=== PATIENT | male | born 1995 | race Caucasian/White ===

== ENCOUNTER 2016-07-08 16:54 | Inpatient (IN) | payer MEDICAID, OTHER ==
[~2016-07-08] VITALS: Ht 177.8 cm; Wt 145.0 kg
[2016-07-08] MEDS ORDERED: Magnesium Hydroxide 10 mL Oral Concentration PO PRN (21:40)
[2016-07-08] MEDS ORDERED: Benzocaine-Menthol Lozenge 2/Pkg PO PRN (21:40)
[2016-07-08] MEDS ORDERED: Alum-Mag Hydrox-Simeth 30 mL Suspension PO PRN (21:40)
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
--- NOTE | 2016-07-09 05:11 | NUR ---
nursing, nights, 11-7 s/o- has appeared to sleep after 2315 during q 15 minute assessments. a- no apparent distress. p- monitor behavior/emotional state, quality, times and amount of sleep, use and effect of medication. jasson
--- NOTE | 2016-07-09 05:52 | NUR ---
Pt arrived to unit 2114. Signed all paperwork and settled in. Pleasant, asked questions about unit, tour given. Asleep at 2315. Pt observed every 15 minutes as ordered.
[2016-07-09 09:00] VITALS: BP 131/82; PULSE 64; RESP 15
--- NOTE | 2016-07-09 12:55 | NUR ---
Nursing Note [id number] Behavior S/O: Pt wanted to sleep in this morning. He missed breakfast, but ate 100% of lunch. VS stable. Pt took a shower this morning. Pt in room most of the day. Pleasant & cooperative. Little interaction with peers & staff. Superficial interactions only. Pt showered this morning. Pt rates his depression at a "5 or 6" on a scale of 1-10/10 the worst. He denies suicidal ideation. A: Pt isolative & avoiding staff & peers. P: Provide supportive environment. Monitor medications & effects.
--- NOTE | 2016-07-09 18:18 | NUR ---
Observations [id number] Pt was asleep in room upon start of shift. Pt appears to not be very social, staying in his room much of shift. He did not attend breakfast and did not set a daily goal. Pt took a shower and did laundry later in the day, but did not attend groups. His family came to visit him in the afternoon, which he seemed to enjoy. Parents shared that he is not very social, and encouragement to groups would be good. Pt did eat 100% of lunch and dinner. He was observed every 15 minutes of shift as directed.
[2016-07-09] MEDS: LORazepam 1 mg Tablet PO PRN (19:44)
--- NOTE | 2016-07-09 19:45 | NUR ---
Nurses Note PRN Patient received Ativan 1mg at 1944 for increasing anxiety,tearfulness and frustration with his hospitalization. Patient responded to support and reality testing regarding his alcohol abuse and coping skills. Will assess medication response. Addendum: 07/09/16 at 2134 by DAMON MEDEL RN Nurses PRN Patient requested and received Ambien 5mg at 2034 for sleep,will assess response.
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
--- NOTE | 2016-07-10 05:32 | NUR ---
nursing, nights, 11-7 s/o- has appeared to sleep after 2200 during q 15 minute assessments. a- no apparent distress. p- monitor behavior/emotional state, quality, times and amount of sleep, use and effect of medication.
[2016-07-10 09:00] VITALS: BP 140/88; PULSE 65; RESP 16
--- NOTE | 2016-07-10 12:24 | NUR ---
Nursing Note [id number] Behavior S/O: Pt in room most of the day. He came out for brief periods of time to eat, attend community meeting, shower, & play the piano. Pt refused breakfast, but ate 100% of lunch. VS stable. Pt pleasant & cooperative. Conversation tracking clear & organized, but very brief & has only superficial conversation with brief sentences. Pt's goal today was to "be positive." A: Pt isolative & has difficulty opening up about personal matters. P: Provide supportive environment. Monitor medications & effects.
[2016-07-10] MEDS: LORazepam 1 mg Tablet PO PRN (16:54)
--- NOTE | 2016-07-10 17:09 | NUR ---
Observations 0900 to 1730 Pt affect and mood was flat, withdrawn and anxious. Pt speech and eye contact was ok. Pt attended group and unit activities. Pt attended community meeting and set a daily goal. Pt was social with staff and select peers when approached. Pt attended meals in D.R. and ate 0% of breakfast and 100% of lunch. Pt maintained behavior throughout the shift. Pt was in his room reading for a majority of the shift. Pt was polite, pleasant and cooperative. Pt had a visit from his GF and it appeared to go well. Pt was observed every 15 minutes throughout the shift as ordered. Addendum: 07/10/16 at 1732 by SABAS FONTENOT [facility] Pt took a shower and attended to ADL's.
--- NOTE | 2016-07-10 17:45 | NUR ---
Bleach Boiler Puller/Counselor: S: "I really needed to get help." O: Patient slept 8+ hours last night as per staff. He reports daily thoughts of suicide, but contracts for safety in the hospital. He denies H/I. He denies auditory and visual hallucinations. A: Patient is cooperative, guarded, depressed, anxious, sad, fair insight, fair judgment. P: Follow care plan, coordinate out-patient providers.
--- NOTE | 2016-07-10 20:20 | PROG NOTE ---
[address] [address] PROGRESS NOTE PATIENT: FRANK INFANTE : 1995 MR#: [id number] ADMIT: 07/08/2016 JOB ID: [id number] DATE: 07/10/2016 CHIEF COMPLAINT: "My mom said that she has been taking Prozac and was recently started on gabapentin." This is per patient report. HISTORY OF PRESENT ILLNESS: As stated above, the patient did identify that he was able to find out that his mother is on prescriptions including Prozac. He indicated that she evidently was recently started on gabapentin in addition, and stated that this was for factors of anxiety. He currently identified a willingness to initiate doses of Prozac, and I have encouraged him to follow up with Psychiatric Care for possible additional treatment. In review of his current status, he states that he had a very positive visit last evening with his parents, his brother he states that he has had telephone conversations with his girlfriend and that things are progressing very well. He continues to be open to follow-up care including individual therapy, medication management, after he leaves the hospital. I have discussed a tentative plan of discharge on Sunday. He is open for such. MENTAL STATUS EXAM: He was bright, cooperative. He continues to be quite anxious, downcast, tearful throughout. He is apologetic repeatedly and was encouraged to look at his current life status as an opportunity to alternative methods of coping. His mood is depressed with anxious features. His affect is congruent. His thought process showed no evidence of random flight of ideas, loose or disconnected thinking. He denied any evidence of current suicidal ideation, but he admitted to a state of hopelessness and despair. He denied any homicidal ideation. No evidence of active hallucinations or delusions. He was alert, oriented to time and place. His attention and concentration intact. 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 Insight and judgment are fair. PHYSICAL EXAM: Vital signs are current. Temperature is 36, pulse 65, respirations 16, BP 140/88. MEDICATION REVIEW: Includes p.r.n.'s of Ativan and Ambien. ASSESSMENT: [place] I1. Major depressive disorder, recurrent type, nonpsychotic. 2. Social phobia. 3. Panic disorder without agoraphobia. [place] IIAvoidant personality features. [place] IIINone. [place] IVStressors are noted for disturbance coping, limited support system. [place] VGlobal Assessment of Functioning: Current 40. PLANS: 1. Recommendations for initiation of Prozac 20 mg q.a.m. 2. Recommendations for initiation of Vistaril 50 mg t.i.d. p.r.n. for manifestations of anxiety. 3. Recommendations for continuation of pursuit of individual therapy and medication management post hospitalization with a plan of discharge on Sunday.
--- NOTE | 2016-07-10 21:35 | NUR ---
Nursing Note Karin Pt affect flat and guarded. Pt behavior cooperative and polite, answers questions appropriately with organized thought process but with minimal one word responses. Pt appears sad and depressed in conversation but is unwilling to discuss his feelings. Pt denied SI and stated his anxiety was "ok" and when asked about depression he said " Its kind of hard to tell if its getting better because I just started the meds".Pt had a visit from his girlfriend which he was noted smiling and laughing. Pt has otherwise been isolating to room. Pt given PRN ativan and Ambien X1. Q15 min safety checks done per protocol, [facility] sleep, behavior, safety
--- NOTE | 2016-07-11 00:53 | NUR ---
Observations 1900 to 0700 Pt was with his visitor in the MP room when my shift started. Pt said the visit went well. Pt spent the rest of the night between his room and the DR. Pt did attend group. Pt was polite and cooperative with both staff and peers. Pt read in his bed before going to sleep. Pt first appeared asleep at 23:45 and was observed every 15 minutes through thew night as directed.
--- NOTE | 2016-07-11 05:19 | NUR ---
nursing, nights, 11-7 s/o- has appeared to sleep after 2044 during q 15 minute assessments. a- no apparent distress. p- monitor behavior/emotional state, quality, times and amount of sleep, use and effect of medication.
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
--- NOTE | 2016-07-11 13:50 | NUR ---
Nursing Notes [id number] Behavior S/O: Pt refused breakfast, but ate 100% of lunch. Pt soft-spoken. Conversation tracking clear & organized with normal rate & rhythm. Pt has only superficial interactions with staff. Pt c/o feeling anxious. Vistaril 50 mg given at 1300. Pt met with psychiatrist. N.O. for Prozac-given at 1300 with Vistaril. Pt attended community meeting in the morning. Pt has been in his room resting most of the day. Affect is flat. Eyes are downcast. Pt received a call from his girlfriend. He has showered & worked on laundry today. A: Pt con't to have significant depression. P: Provide supportive environment. Monitor medications & effects.
--- NOTE | 2016-07-11 15:41 | NUR ---
Classifying Machine Operator/Counselor: S: "My girlfriend is really supportive of me talking to a therapist." O: Patient slept 6+ hours last night as per staff. He denies S/I and H/I. He denies auditory and visual hallucinations. A: Patient is cooperative, depressed, anxious, hopeful, fair insight, fair judgment. P: Follow care plan, coordinate out-patient providers.
--- NOTE | 2016-07-11 18:43 | NUR ---
Obs Dayshift Pt attends and participates in groups that are offered to him. Pt went on the computer and filled out the application for [employer] classes. Pt is forward thinking, polite, bored, tired, eager to DC and go home. Pt had a visit from his father, appeared to be appropriate, and calm. Pt affect is calm, depressed, quiet, ok eye contact. Engages upon approach. Good ADL's, Good meals
--- NOTE | 2016-07-11 21:18 | NUR ---
Nurses Note Evening Patient has remained isolative to his room except for meals and medications. He was encouraged to remain medication compliant when discharged as well as developing improved coping skills and new interests to maintain his sobriety. Addendum: 07/11/16 at 2128 by DAMON MEDEL RN Amended: Links added.
--- NOTE | 2016-07-12 00:57 | NUR ---
Observations 1900 to 0700 Pt was in his room for most of the night. Pt was polite and cooperative with staff. Pt read in his bed before going to sleep. Pt first appeared asleep at 21:15 and was observed every 15 minutes through thew night as directed.
--- NOTE | 2016-07-12 04:57 | NUR ---
Sleep 11p-7a Adequate sleep through the night with no noted distress or awakening per protocol checks. Total sleep 8+ hours.
--- NOTE | 2016-07-12 09:27 | PCM.DIMED ---
Discharge Instructions Date of Service Jul 12, 2016 Dates of Hospitalization Jul 08, 2016 at 21:10 Discharge Diagnosis Discharge Diagnosis Major Depression Recurrent nonpsychotic Social Phobia Panic DO without agoraphobia Avoidant Personality DO Diet No restrictions Activity No restrictions Nakul Mcgowan DO Jul 12, 2016 09:27
[2016-07-12] MEDS ORDERED: HYDR50CA3 PO (09:29)
[2016-07-12] MEDS ORDERED: FLUO20CA25 PO (09:29)
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
--- NOTE | 2016-07-12 14:27 | NUR ---
Nursing Note Discharge Pt discharged with Tia (girlfriend) at 1355. Pt expressed understanding of all discharge instructions including assessment time at [facility] in [place]. Pt signed all paperwork. Copies given needed paperwork & scripts. Medications faxed to [facility] in [place]. Pt pleasant & cooperative with discharge process. Pt denies suicidal/homicidal ideation or hallucinations.
== END 2016-07-12 13:55 | disposition home or self-care (01) | DRG 885 ==
LOC: MHC 21:10
PROVIDERS: ADMIT Psychiatry & Neurology Psychiatry; ATTEND Psychiatry & Neurology Psychiatry
DX: F33.2 Major depressive disorder, recurrent severe without psychotic features (principal); R45.851 Suicidal ideations; F41.0 Panic disorder [episodic paroxysmal anxiety]; F40.10 Social phobia, unspecified; F10.10 Alcohol abuse, uncomplicated; F60.6 Avoidant personality disorder

== ENCOUNTER 2016-08-11 13:57 | Inpatient (IN) | payer MEDICAID, OTHER ==
[~2016-08-11] VITALS: Ht 172.7 cm; Wt 66.0 kg
[~2016-08-11 13:57] MED LIST: FLUO20CA25 PO; HYDR50CA3 PO
[2016-08-11 16:50] VITALS: BP 131/80; PULSE 86; RESP 16
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
[2016-08-11] MEDS ORDERED: Magnesium Hydroxide 10 mL Oral Concentration PO PRN (17:05)
[2016-08-11] MEDS ORDERED: Alum-Mag Hydrox-Simeth 30 mL Suspension PO PRN (17:05)
[2016-08-11] MEDS ORDERED: Benzocaine-Menthol Lozenge 2/Pkg PO PRN (17:05)
[2016-08-11] MEDS: LORazepam 1 mg Tablet PO PRN (18:46)
--- NOTE | 2016-08-12 05:25 | NUR ---
Nursing Noc Pt first noted to be asleep at 2030 and remained asleep this shift. Continuing to monitor sleep times and safety by Q15 minute checks. CP
[2016-08-12 08:21] VITALS: BP 134/86; PULSE 74; RESP 16
[2016-08-12] MEDS: LORazepam 1 mg Tablet PO PRN (11:51)
--- NOTE | 2016-08-12 12:34 | NUR ---
Nursing Day Shift- S- "I feel pretty shaky now." (at 1150.) O- Pt. appeared asleep at the start of the day shift. He woke and quickly eat breakfast, then returned to his bed. Pt. was woken to speak with the MD at 11 kodi. After the mtg., the Pt. requested and received Ativan for anxiety rated 8/10. He appeared slightly tremulous. He was able to contact for safety, and denied Suicidal thoughts. A- Depression, possible Alcohol withdrawal. Anxiety. P- Cont. BHTP
--- NOTE | 2016-08-12 14:51 | NUR ---
Thread Laster./ c.m. S.:"I think I make things worse... Part of me wants to give up and part of me wants to get better. I'm confused about medicine." O.: met with pt. and doctor together for initial interview. Pt. is ROSA 72 hrs hold as DTS and DTO. This is his 2nd psych. hospitalization. He was discharged from here on 2016. He got connected with mental health services recently. He is still looking for a med. provider. He didn't notice any help from meds after discharge. He started drinking again. He made another SA recently. He is unemployed and lives with his g.f. who is very supportive. He denied SI/HI at this time. He denied AH/VH, rated depression at 5/10 and anxiety at 9/10. He slept "good" last night and he was "sleeping a lot" during a day too. He agreed to do an Alcohol Assessment. He admitted having possible alcohol withdrawal. He discussed meds with the doctor. He was in and out of his room but mostly keeping to himself. A.: pt. is isolative, cooperative, quiet, tearful, hopeless and helpless. He looks anxious and has a flat affect. P.: monitor behavior, engage pt. in the program, monitor for alcohol withdrawal, provide safety in the unit; follow care plan.
--- NOTE | 2016-08-12 17:19 | NUR ---
Observations from [id number] Pt was pleasant when approached but kept to himself most of the day. Pt had limited interactions with staff and no interaction with peers, but did have his girlfriend visit this evening which he seemed to enjoy. Pt did not attend community meeting and did not attend groups today. Pt has been monitored every 15 minutes as directed. Addendum: 08/12/16 at 1723 by [facility] Pt ate 100% of all meals today Addendum: 08/12/16 at 1750 by [facility] Went back to check on pt later in the visit and he was tearful and very sad
--- NOTE | 2016-08-12 21:04 | NUR ---
NURSING NOTE [id number] Mood: "ok, fine" Affect: depressed, sad, nervous Behavior: girlfriend visited for several hrs, he was tearful off and on during their visit. Med compliant (yesterday evening he had fallen asleep before his HS Remeron was due so he missed his dose as this proposal manager writer did not want to wake him up for it. Clarified this w/the pt. today as he was concerned he had refused it yesterday evening; stating "I was so out of it then, I wasn't sure if I had refused it") Thought processes: denies SI/HI. Continues to have severe social phobia and reports he has difficulty coming out into the milieu to eat his meals or make requests of staff. Reports he feels very lonely and in my head. His girlfriend brought him several books and he reports he is going to try to read to feel better.
--- NOTE | 2016-08-13 03:34 | NUR ---
Observations 1900 to 0700 Pt was visiting with his Girlfriend when my shift started. Pt went to his room as soon as his visitor left and has been there since. Pt first appeared asleep at 20:45 and was observed every 15 minutes through the night as directed.
--- NOTE | 2016-08-13 05:18 | NUR ---
Sleep 11p-7a Adequate sleep through the night with no noted distress or awakening per protocol checks. Total sleep over 8.5 hours.
[2016-08-13 11:00] VITALS: BP 145/93; PULSE 93; RESP 16
--- NOTE | 2016-08-13 13:12 | NUR ---
Nursing Day Shift- S- "I'm fine. Just sleeping in. I'm trying not to think about it." (craving alcohol.) O- Pt. appeared asleep at the start of the day shift. He had slept 10 plus hours at 0630 per shift supervisor rn report. He remained in bed until 11, and stated the above when asked about depression, anxiety and alcohol withdrawal. His VS were WNL's. Pt. got up for lunch, then remained in the DR afterwards. A- Depression, anxiety, Alcohol dependence. P- Cont. BHTP. Cont. to monitor for possible withdrawal.
--- NOTE | 2016-08-13 14:21 | NUR ---
Health Researcher./ c.m. S.:"I'm good." O.: met with pt. in his room. He was in bed sleeping/resting but he sat up readily to talk to the conventional underwriter. Pt. slept well last night. He had "a good" visit with his g.f. and a long conversation about his behavior under alcohol intoxication. "She was very upset and I don't blame her. She has all rights to be upset with me." He denied SI/HI, denied AH/VH or paranoid/delusional thoughts today. He rated depression at 5/10 and anxiety at 4/10. He described his mood as "good" today. "I feel almost excited about my future. I will go to 28 days treatment." He denied symptoms of alcohol withdrawal today. He spent most of the time in his room. A.: pt. is cooperative, pleasant, isolative, quiet. He has brighter affect and a good eye contact. P.: monitor behavior, try to schedule inpatient alcohol assessment, provide safety in the unit; follow care plan.
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
--- NOTE | 2016-08-13 17:14 | PROG NOTE ---
[address] [address] PROGRESS NOTE PATIENT: FRANK INFANTE : 1995 MR#: [id number] ADMIT: 08/11/2016 JOB ID: [id number] DATE: 08/13/2016 CHIEF COMPLAINT: "I talked with my girlfriend, I decided that I need to go off the treatment, I know it is a good idea." This is per patient report. HISTORY OF PRESENT ILLNESS: As stated above, the patient did openly identify significant change of thought and a willingness to actually go into residential treatment if the chemical dependency assessment supports. He reports that he did have a lengthy conversation with his girlfriend yesterday and indicated that she has discussed with him her concern and openly identified that if he does not stop drinking, she will move out. He reports that he realizes that his alcohol has been an ongoing issue and stated that she herself was raised by a mentally ill mother and has significant codependency features. OBJECTIVE: On mental status exam, he was bright, cooperative, casually dressed in scrub attire. He makes good eye contact. He openly identified that he slept significantly last evening all the way through the evening and feels well rested. He reports that the dose administration of Remeron appeared to significantly help out and he also stated that he does not have the level of anxiety that he has consistently battled with. His speech is of normal tone, frequency, and volume. His mood is neutral. His affect is congruent. His thought process showed no evidence of racing thoughts, flight of ideas, loose association, disconnection of thought. Thought content: He denied any evidence of current suicidal ideation, intent, or plan. No evidence of active hallucinations, delusions. He was alert, oriented to time and place. Attention, concentration intact. Memory intact in the short term, retirement, recent. Insight and judgment are gaining. PHYSICAL EXAM: Vital signs are current. Temperature is 36.5, pulse 74, respirations 16, BP 134/86. MEDICATION REVIEW: 1. Includes doses of Prozac 20 mg q.a.m., Remeron 15 mg q.h.s., and Ativan 1 mg q.4 h. p.r.n. ASSESSMENT: [place] I1. Major depressive disorder, recurrent, severe, nonpsychotic. 2. Social phobia. 3. Generalized anxiety disorder. 4. Alcohol use disorder, chronic, severe. [place] IIDeferred. [place] IIINone. [place] IVStressors are noted for transition of life, significant alcohol use. [place] VGlobal assessment of functioning currently 35. PLAN: 1. Recommendations for continuation of all medications noted. 2. Recommendations for chemical dependency assessment, hopefully to be completed over the next 48 hours. 3. Recommendations for probable petition for a 14-day order based on the patient's significant inability to stabilize in a least restrictive model with recent hospitalization discharge and high risk of suicide attempt including using a loaded weapon. Patient indicated that he would not contest the recommendation for a 14- day order.
--- NOTE | 2016-08-13 17:43 | NUR ---
[facility] Day Shift Pt maintained behavioral control throughout the shift. Pt affect appears mostly flat, brighter when engaged with staff or peers. Pt is mostly isolative throughout the shift, preferring to stay in his room/bed. Pt is only active on the unit to attend meals and take phone calls. Pt is pleasant with staff and peers when engaged, but is not social. Pt did not attend group activities throughout the shift. Pt attended all meals and ate approx 100% of all meals.
--- NOTE | 2016-08-13 21:26 | NUR ---
NURSING NOTE [id number] Mood: "more positive" Affect: calm, pleasant in conversation Behavior: isolating to room for first half of shift. He came out on time for dinner this evening (he has missed his dinner the previous 2 days), visited w/his father, then rested in bed as he reports he feels tired today. Counseled pt. on proper sleep hygiene and being careful not to sleep too much in the daytime (as per dayshift report he mostly rested in bed earlier today as well). He attended wrap-up group and then watched a movie for a while afterward w/some of his peers. Thought processes: logical, linear, futuristic and motivated. Pt. reports he is feeling positive because he is planning to discharge to an alcohol treatment facility when he leaves here. Reports he is feeling less anxious than when he first came here. Denies SI/HI.
--- NOTE | 2016-08-14 04:32 | NUR ---
Nursing Note Senior Vice President And Chief Information Officer 11pm to 7am. Pt in bed at start of shift. Slept soundly throughout the night. No issues reported or observed. Monitored q 15 minutes for safety, location and accountability.
[2016-08-14 10:36] VITALS: BP 131/69; PULSE 73; RESP 16
--- NOTE | 2016-08-14 13:32 | PROG NOTE ---
[address] [address] PROGRESS NOTE PATIENT: FRANK INFANTE : 1995 MR#: [id number] ADMIT: 08/11/2016 JOB ID: [id number] DATE: 08/14/2016 CHIEF COMPLAINT: "I'll do whatever it takes, I know I need to stop drinking." This per patient report. HISTORY OF THE PRESENT ILLNESS: As stated above, the patient did discuss once again with myself his commitment to pursuing active alcohol treatment post discharge. I have discussed with the treatment team application for a MR 14 based on the patient's considerable rapid turnaround and readmission. The patient openly identifies a willingness to go through a MR 14 with no contested hearing indicating that he would hope that they would be able to provide some form of treatment post hospitalization. He continues to openly identify fears that if he were to be discharged from the hospital that he would ultimately return immediately back to drinking and also a struggle with significant suicidal intent. He identified that he is having significant negative memories that are coming back to him in reference to the occurrences that led to his current hospitalization. OBJECTIVE: On mental status examination, he was cooperative, polite. He maintained good eye contact. His speech was of normal tone, frequency and volume. His mood was anxious to some degree. His affect is guarded. His thought process shows no evidence of racing thoughts, flight of ideas, loose or disconnected thinking. Thought content: While the patient identifies absence of suicidal ideation, he also openly identifies that he is fearful if he were to return home that he would ultimately lead to drinking and do something under the influence. He has no evidence of insight or alternative coping skills to deal with his current status of alcoholism. There is no evidence of hallucinations or delusions. He was alert, oriented to time and place. His attention and concentration are intact. Insight and judgment are fair. PHYSICAL EXAM: Vital signs are current. Temperature is 36.5, pulse 73, respirations 16, BP 131/69. MEDICATION REVIEW: Includes: 1. Prozac 20 mg q. a.m. 2. Remeron 15 mg q.h.s. 3. P.r.n. usage of Ativan 1 mg q.4 hours. ASSESSMENT: AXIS I1. Major depressive disorder, recurrent type, nonpsychotic, severe. 2. Generalized anxiety disorder. 3. Social phobia. 4. Alcohol use disorder chronic severe. AXIS IIDeferred. AXIS IIINone. AXIS IVStressors are noted for significant alcohol use, ineffective coping, limited support system. AXIS VGlobal assessment of functioning of current 30. PLANS: 1. Recommendations for applications for MR 14 to be filed for Sunday court date. 2. Continuation of all medications noted. 3. Chemical dependency assessment has been arranged for Sunday to discuss transition through chemical dependency post hospitalization as noted.
--- NOTE | 2016-08-14 14:37 | NUR ---
Nursing Note [id number] Behavior, Mood S/O: Pt has good appetite. VS stable. Pt rated his depression at a "6" on a scale of 1-10/10 the worst. Pt reports "a little" anxiety. He denies suicidal ideation. Pt stated he was looking forward to getting chemical dependancy treatment. Full affect. Conversation tracking clear & organized with normal rate & rhythm. Pleasant & cooperative. A: Pt concerned about alcohol relapse. P: Provide supportive environment. Monitor medications & effects.
--- NOTE | 2016-08-14 15:58 | NUR ---
Box Attacher./ c.m. S.:"I'm doing good." O.: met with pt. and doctor together in pt.'s room. Pt. slept well last night. He denied SI/HI, denied AH/VH or paranoid/delusional thoughts. He started remembering some of his actions while being under an alcohol influence. It was disturbing to him. He is willing to get an Alcohol Assessment done here in the hospital. He is willing to go to a residential alcohol treatment. We discussed different options of alcohol treatment. Mixer Attendant called [facility] ([phone]) and scheduled Alcohol Assessment with MARK Sahni on August 18 @ 9:00 am here in the unit. Mixer Attendant also called [facility] and left a message with MARK Rodgers asking for an early Assessment appt. if possible. Pt. spent a lot of time in his room. A.: pt. is cooperative, pleasant, isolative and quiet. P.: monitor behavior, continue encourage pt. to spend more time outside his room and to participate in the unit activities; follow care plan.
--- NOTE | 2016-08-14 17:28 | NUR ---
Obs Dayshift Pt is polite w/ staff and peers, Oriented, calm, engaged and participates but mostly in AM/PM groups. Pt states that he is doing good when approached by staff. Pt has little requests, sits quietly in the milieu. Pt appears reserved and slightly guarded, sad. Appropriate, reasonable, quiet. Good ADL's, Good meals
--- NOTE | 2016-08-14 19:14 | NUR ---
NURSING NOTE [id number] Mood: "okay" Affect: neutral Behavior: Napping at start of shift. After dinner has been more visible in DR than previous evenings. Has been sitting out in the milieu, watching TV. Will interact w/peers when they engage w/him. Thought processes: No SI/HI. Reports he has "a little" depression, reports his anxiety is "much better". Futuristic and expressing insight.
--- NOTE | 2016-08-15 02:50 | NUR ---
Observations 1900 to 0700 Pt was out in the DR more than my previous shift worked. pt watched a movie beofre going to his room for the night. Pt was polite and cooperative. Pt first appeared asleep at 21:30 and was observed every 15 minutes through the night as directed.
[2016-08-15 11:02] VITALS: BP 144/83; PULSE 75
--- NOTE | 2016-08-15 11:58 | PROG NOTE ---
[address] [address] PROGRESS NOTE PATIENT: FRANK INFANTE : 1995 MR#: [id number] ADMIT: 08/11/2016 JOB ID: [id number] DATE: 08/15/2016 CHIEF COMPLAINT: "My girlfriend will be coming in to visit, I am kind of bored." This is per patient report. HISTORY OF PRESENT ILLNESS: As stated above, the patient openly identified that his girlfriend will be coming in later on today to visit. He indicates that he is working on some skills based intervention identifying that he feels that his mood has significantly improved with his agreement to advance into chemical dependency treatment. He reports that he is willing to abide by a no contested hearing for his MR 14 with the intent that he will transition from our unit to a chemical dependency treatment program. He indicates that he did sleep well last evening and is trying to participate in various activities on the unit. OBJECTIVE: On mental status exam, he maintained good eye contact. He denied any evidence of current distress. His speech was of normal tone, frequency and volume. His mood was neutral. Affect was congruent. His thought process shows no evidence of racing thoughts, flight of ideas, loose or disconnected thinking. Thought content, he denied any evidence of current suicidal or homicidal ideation. No evidence of active hallucinations or delusions. He was alert, oriented to time and place. His attention and concentration intact. Memory intact in the short term, halfway, recent. Insight and judgment are gaining. PHYSICAL EXAMINATION: Vital signs of current. Temperature is 36.4, pulse 75, respirations unlisted, BP 144/83. MEDICATION REVIEW: Includes: 1. Prozac 20 mg q.a.m. 2. Remeron 15 mg q.h.s. ASSESSMENT: AXIS I 1. Major depressive disorder, recurrent type, severe. 2. Generalized anxiety disorder. 3. Social phobia. 4. Alcohol use disorder, chronic, severe. AXIS II Deferred. AXIS III None. AXIS IV Stressors are noted including chronic alcohol use and mental health issues. AXIS V Global Assessment of Functioning current 35. PLAN: 1. Recommendation is for MR 14 to be filed no contest. 2. Chemical dependency evaluation hopefully will be completed within the next several days. 3. Recommendation is for continuation of all medications noted.
--- NOTE | 2016-08-15 13:47 | NUR ---
Nursing Note [id number] S/O: Pt out in milieu for brief periods of time. Pt attended community meeting this morning. Pt refused breakfast, but ate 75% of lunch. VS stable. Pt rated mood at a "2" on a scale of 1-10/10 the worst. Pt is pleasant & cooperative. He states, "I'm trying to earn the trust back from my family." A: Pt has good insight, but poor coping skills (ie alcohol abuse) P: Provide supportive environment. Monitor medications & effects.
--- NOTE | 2016-08-15 15:50 | NUR ---
Freezing Room Worker./ c.m. S./O.: met with pt. in his room. Pt. spent a lot of time in her room resting. He denied SI/HI, denied AH/VH or paranoid/delusional thoughts. Strap Machine Operator informed pt. about Alcohol Assessment that is schedule for tomorrow morning at 9:00 am with MARK Yancey from [facility] ([phone]). Strap Machine Operator encouraged pt. to stay more in a public area and to participate in the unit activities. A.: pt. is isolative, sleeping a lot, quiet and pleasant. P.: monitor behavior, possible CD Assessment tomorrow, encourage pt. to spend more time in the public area; follow care plan.
--- NOTE | 2016-08-15 17:26 | NUR ---
Observations [id number] Pt was asleep upon start of shift. He presents as soft spoken and polite. Pt did attend meals, eating 100%. He spent more time today in the common area, reading and listening to music. He was also observed interacting with peers. Pt also played the piano in the afternoon and spent time on the phone. He took a shower and also did laundry. Pt was observed every 15 minutes of shift as directed.
--- NOTE | 2016-08-15 22:13 | NUR ---
Nursing note: evening shift Patient is visible in dining room and hallway much of the shift. Patient is neatly groomed, smiles and polite on approach. Patient reports he is agreeable to CD assessment tomorrow and hopes he can learn coping skills. Patient reports he currently does not feel like drinking ETOH again, but "I want to know what to do if I did want to drink again" Patient enjoyed visit with female friend. Patient attended wrap up group, took HS medication and retired to bed.
--- NOTE | 2016-08-16 03:29 | NUR ---
Observations 1900 to 0700 Pt was out in the DR more than my previous shift worked. Pt's Girlfriend visited again last night. Pt was polite and cooperative. Pt first appeared asleep at 21:45 and was observed every 15 minutes through the night as directed.
--- NOTE | 2016-08-16 06:16 | NUR ---
Sleep 11p-7a Adequate sleep through the night with no noted distress or awakening per protocol checks. He has remained asleep since 2144 with over 8.5 hours.
[2016-08-16 12:17] VITALS: BP 153/103; PULSE 70; RESP 16
--- NOTE | 2016-08-16 12:55 | PROG NOTE ---
[address] [address] PROGRESS NOTE PATIENT: FRANK INFANTE : 1995 MR#: [id number] ADMIT: 08/11/2016 JOB ID: [id number] DATE: 08/16/2016 CHIEF COMPLAINT: "I used to drink just socially. It has really gotten out of hand, and I drink when I am alone and feeling lonely." This is per patient report. HISTORY OF PRESENT ILLNESS: As stated above, the patient did openly identify significant reflection of his current alcohol use pattern. He reportedly has agreed to a 14 day MR with a point of undergoing evaluation for chemical dependency placement. He reports that he will be speaking with his father and brother today to make sure that they have removed all of the weapons from the home environment. He readily identifies his significant pattern of seeking out alcohol for feelings of emptiness and loneliness and readily identifies a significant shift of his mood with open identification repetitive suicidal intent. He indicates that he does not feel safe to return to the home environment prior to going through treatment, and we are undergoing assessment and referral process. OBJECTIVE: On mental status exam, he was cooperative, polite. He maintained good eye contact throughout. He became quite tearful in discussing his struggles with feelings of emptiness and loneliness and the reflection of alcohol usage. His mood is mildly depressed with anxious features. His affect is congruent. His thought process shows no evidence of racing thoughts, flight of ideas, loose or disconnected thinking. Thought content: He readily identifies feeling of being unsafe if he were to discharge early prior to going on to chemical dependency treatment. He denies any evidence of homicidal ideation. No evidence of paranoid ideation. No evidence of active hallucinations, delusions. He was alert, oriented to time and place. Attention and concentration intact. Insight and judgment are fair. PHYSICAL EXAM: Vital signs are current. Temperature is 36.4, pulse 75, respirations 144/83. MEDICATION REVIEW: Includes: 1. Prozac 20 mg q.a.m. 2. Remeron 15 mg q.h.s. ASSESSMENT: AXIS I: 1. Major depressive disorder, recurrent type, nonpsychotic, severe. 2. Alcohol use disorder, chronic, severe. 3. Social phobia. 4. Generalized anxiety disorder. AXIS II: Deferred. AXIS III: None. AXIS IV: Stressors are noted for chronic alcohol use, noncompliance with interventions prior, post hospitalization within the past month. AXIS V: Global Assessment of Functioning of current 30. PLANS: 1. Recommendations for continuation of MR14. 2. Await chemical dependency assessment with referrals. 3. Continuation of all medications noted.
--- NOTE | 2016-08-16 15:54 | NUR ---
Nursing Day Shift- S/O- Pt. had slept 8 plus hours per report. He attended breakfast and group. He was placed on a 14 day agreed to MRO in court today. Nelli Allen from [facility] completed a CD assessment. She will contact the unit with the results and possible placement options. Pt. continues to contract for safety on the unit. No PRN's requested. A- Anxiety, depression, alcohol dependence. P- Cont. bHTP.
--- NOTE | 2016-08-16 17:31 | NUR ---
[facility] Day Shift Pt affect and behavior unchanged from previous shifts. Pt maintained behavioral control throughout the shift. Pt affect appears mostly flat, brighter when engaged with staff or peers. Pt is mostly isolative throughout the shift, preferring to stay in his room/bed. Pt is only active on the unit to attend meals and take phone calls. Pt is pleasant with staff and peers when engaged, but is not social. Pt did not attend community meeting or group activities throughout the shift. Pt attended all meals and ate approx 100% of all meals.
--- NOTE | 2016-08-16 22:10 | NUR ---
NURSING NOTE [id number] Mood: "okay" Affect: quiet, calm, cooperative Behavior: pt. resting in bed at start of shift until dinner time. Remained in DR for a few mins after dinner, watching TV then read a book in the DR. He signed paperwork to fax over to the clinician who performed his CD eval. He attended wrap-up group. Med compliant. Thought processes: endorses "some" depression and anxiety, reports he feels safe on the unit
--- NOTE | 2016-08-17 02:54 | NUR ---
Observations 1900 to 0700 Pt was out in the DR more than my previous shift worked. Pt had visitors again last night. Pt was polite and cooperative. Pt hung out in the DR a little more. Pt first appeared asleep at 22:00 and was observed every 15 minutes through the night as directed.
--- NOTE | 2016-08-17 04:55 | NUR ---
nursing, nights, 11-7 s/o- has appeared to sleep after 2200 during q 15 minute assessments. a- no apparent distress. p- monitor behavior/emotional state, quality, times and amount of sleep, use and effect of medication. jasson
--- NOTE | 2016-08-17 11:31 | PROG NOTE ---
[address] [address] PROGRESS NOTE PATIENT: FRANK INFANTE : 1995 MR#: [id number] ADMIT: 08/11/2016 JOB ID: [id number] DATE: 08/17/2016 CHIEF COMPLAINT: "I had a good visit with my dad and my brother." This is per patient report. HISTORY OF PRESENT ILLNESS: As stated above, the patient identified that he had a very positive visit with his father and brother. They did affirm that they will remove the weapon from the home environment. He indicated that he was very assertive with them, and they openly acknowledged that they should have actually dispensed of the weapon before but indicated that it is something that they truly regret. They did indicate that they are very supportive of the plan and intent to advance into chemical dependency treatment. The patient did complete CD evaluation yesterday. It is my understanding that his application will be sent out to various treatment facilities. The chemical dependency worker affirmed with the patient that she will check back in with him on Sunday of next week. OBJECTIVE: On mental status exam, he was bright, cooperative, interactive. He maintained good eye contact throughout. He denied any evidence of current suicidal or homicidal ideation but again affirmed that he is fearful that if he were to be discharged, that he would ultimately return back to drinking and be a lethal risk. He denies any active hallucinations or delusions. He was alert, oriented to time and place. His attention and concentration intact. Memory intact in the short term, senior living, recent. Insight and judgment are fair. PHYSICAL EXAMINATION: All vital signs are current. Temperature is 36.2, pulse 70, respirations 16, BP 153/100. MEDICATION REVIEW: Includes: 1. Prozac 20 mg q.a.m. 2. Remeron 15 mg q.h.s. ASSESSMENT: AXIS I 1. Major depressive disorder, recurrent type. 2. Social phobia. 3. Generalized anxiety disorder. 4. Alcohol use disorder, severe, chronic. AXIS II Deferred. AXIS III None. AXIS IV Stressors are noted for significant alcohol usage and significant history of limited impulse control. AXIS V Global Assessment of Functioning current 30. PLAN: 1. Recommendation is for continuation of MR 14 with expedition and applications for chemical dependency treatment transition. 2. Continuation of all medications noted.
--- NOTE | 2016-08-17 12:23 | NUR ---
Nursing Day shift- S- "Right now it's about a 2. I'm getting used to the people here. It's not so bad. Maybe a 4." (anxiety. Pt. rated anxiety while resting in his room, and when out on the unit.) O- Pt. had slept 8 plus hours per report. He appears flat and relaxed. He attended groups and denied thoughts of suicide. Pt. expressed hope that he could go from here directly to Inpatient alcohol treatment. A- Addiction, anxiety. Seeking help. P- Awaiting call back from [facility]. Cont. BHTP.
[2016-08-17 13:36] VITALS: BP 142/89; PULSE 76; RESP 16
--- NOTE | 2016-08-17 18:20 | NUR ---
[facility] Day Shift Pt affect and behavior unchanged from previous shifts. Pt maintained behavioral control throughout the shift. Pt affect appears mostly flat, brighter when engaged with staff or peers. Pt is mostly isolative throughout the shift, preferring to stay in his room/bed. Pt is only active on the unit to attend meals and take phone calls. Pt is pleasant with staff and peers when engaged, but is not social. Pt did not attend community meeting or group activities throughout the shift. Pt attended all meals and ate approx 100% of all meals.
--- NOTE | 2016-08-17 20:03 | NUR ---
NURSING NOTE [id number] Mood: "better, thank you" Affect: calm, pleasant Behavior: much more visible this shift than evenings prior; he has been out of his room for the majority of the shift, sitting w/peers and chatting, watching TV w/peers and he noted he is making more efforts to be social Thought processes: logical, linear, denies SI/HI.
--- NOTE | 2016-08-18 05:11 | NUR ---
nursing, nights, 11-7 s/o- has appeared to sleep after 2114 during q 15 minute assessments. a- no apparent distress. p- monitor behavior/emotional state, quality, times and amount of sleep, use and effect of medication. jasson
[2016-08-18 10:15] VITALS: BP 119/75; PULSE 63; RESP 16
--- NOTE | 2016-08-18 12:10 | PROG NOTE ---
[address] [address] PROGRESS NOTE PATIENT: ROCKY INFANTE : 1995 MR#: [id number] ADMIT: 08/11/2016 JOB ID: [id number] DATE: 08/18/2016 CHIEF CONCERN: "I am really hopeful that I will be able to get in to a placement. I'm glad that I'm here in the hospital, because otherwise I know that I would be drinking and probably do something again." HISTORY OF THE PRESENT ILLNESS: As stated above, Rocky did identify that he remains hopeful for possible placement in a residential chemical dependency treatment. He indicates that he has not heard back from the SCD art director at this time. Calls will be placed with the facility [facility] by LAZARA later on today. OBJECTIVE: On mental status exam, he was bright, cooperative, interactive. He denies any evidence of current suicidal, homicidal ideation. No evidence of active hallucinations, delusions. He was alert, oriented to time and place. Attention and concentration intact. Memory intact in the short term, intermediate teacher, recent. Insight and judgment are fair. PHYSICAL EXAM: Vital signs are current. Temperature is 36.3, pulse 76, respirations 16, BP 142/89 with noted consistent elevated temperatures since his admission. MEDICATION REVIEW: Includes: 1. Prozac 20 mg q.a.m. 2. Remeron 15 mg q.h.s. ASSESSMENT: AXIS I: 1. Major depressive disorder, recurrent type, nonpsychotic. 2. Social phobia. 3. Alcohol use disorder. AXIS II: Deferred. AXIS III: Rule out hypertension. AXIS IV: Stressors are noted for chronic alcohol use, limited impulse control. AXIS V: Global Assessment of Functioning of current 35. PLAN: 1. Recommendations for continuation of placement options for chemical dependency treatment. 2. Recommendations for continuation of all medications noted.
--- NOTE | 2016-08-18 13:31 | NUR ---
Nursing Day Shift- S/O- Pt. appeared asleep at the start of the day shift. He got up for breakfast, then returned to bed. He has appeared to sleep and read in bed thus far today. Pt. reports feeling safe on the unit. He appears to have a pattern of isolating in the mornings, and participating more in the afternoons and evenings. A- Anxiety decreasing. P- Awaiting bed date for CD treatment. Cont. BHTP.
[2016-08-19 11:41] VITALS: BP 138/95; PULSE 86; RESP 16
--- NOTE | 2016-08-19 15:04 | PCM.PNPSY ---
Subjective Date of Service Aug 19, 2016 Subjective I spent 30 minutes both reviewing his treatment plan and providing supportive and educational psychotherapy. I spent more than 50% of the time counseling the patient. I reviewed the treatment plan with the patient and discussed options available including the potential risks, benefits and side effects. Rocky reports difficulty with sleep, apathy and amotivation.. The Staff reports that he has been active and is participating well in one-to-one unit and group activities. He slept 8.5 hours. He denies medication side effects. Denies suicidal ideation plan or intent. He denied psychotic symptoms review. Patient was able to identify his medications and what they were used to treat. He appeared to understand the need for medications by the questions he asked during our discussion. Mental Status Exam Vital Signs Vital Signs Date Time Temp Pulse Resp B/P Pulse Ox O2 Delivery O2 Flow Rate FiO2 08/19/16 11:41 36.8 86 16 138/95 Appearance: Neat/well groomed Attitude: Pleasant, Cooperative Behavior: No unusual behavior Affect: Well Modulated/Appropriate Mood: Dysthymic Thought Process/Associations: Logical/Sequential, Goal Directed Speech Production: Normal Speech Rate: Normal Speech Articulation: Normal Thought Content: Appropriate Danger to Self/Suicidal Ideati: None Danger to Others: None Consciousness: Alert Orientation: Person, Place, Date, Situation Memory: Grossly Intact Estimate Intellectual Function: Above Average Basis for IQ estimate: Awareness current events, Word use/vocabulary, Educational history Attention/Concentration & Cogn: Grossly Intact Insight: Good Judgement: Limited Mental Health Plan Rocky is a 20-year-old male from [place], admitted under ROSA status from [facility] following significant increasing difficulties with suicidal ideation, recent near attempt with a loaded pistol, and also significant increased behaviors including threatening physical harm to his girlfriend. He had been admitted to our unit within the past month with contributory presence of both alcohol use disorder, depression and anxiety. The patient reportedly was discharged with recommendations of outpatient interventions of individual therapy,medication management, and had an intake at [facility]. He does have a scheduled followup per his own report on Sunday of this next week with just an individual therapist. He also indicates that he was attempting to schedule appointments with family practitioner for medication management. He continues to be unemployed. 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 He indicates that he has been isolating to the apartment and playing video games as a primary intervention. He was previously very athletic and was training for a marathon, reporting that he had gotten up to 18 miles per day. In reviewing his current status, he openly identified feelings of hopelessness, helplessness, worthlessness. He admitted to contributory evidence of suicidal ideation under the influence of alcohol and near attempt within the past week.He denied any evidence of disturbance of his appetite. He admits to significant struggles with sleep, including primary and secondary insomnia. He admitted to feelings of apathy and amotivation. On the unit he has appeared to show gradual and steady improvement in mood, and is beginning to future plan to take back Authority in his life. [place] AXIS I: 1. Major depressive disorder, recurrent type, nonpsychotic. 2. Social phobia. 3. Alcohol use disorder. AXIS II: Deferred. AXIS III: Rule out hypertension. AXIS IV: Stressors are noted for chronic alcohol use, limited impulse control. AXIS V: Global Assessment of Functioning of current 40. Medications Treatments Patient is being provided with a high degree of safety through the structure and active adult engagement. We will focus on developing improved coping skills and identifying stressors that may have led to current episode. We will attempt to: Integrate into therapeutic groups, milieu and individual therapy. Maintain in a closely monitored and structured unit Provide low-stimulation environment Assess degree of lability of affect and impulse control Complete safety plan Decrease frequency of relapse and need for re-hospitalization Denies thoughts of harm to self Establish a consistent sleep pattern Medication effective in stabilization of mood and/or thought process Reduce the risk of imminent harm to self and/or others by providing a safe environment Tolerates medication without side effects Patient will be on the following psychiatric medications: 1. Prozac 20 mg q.a.m. 2. Remeron 15 mg q.h.s. Education: Educate patient about recreational drug use as an etiology Recommend 90 AA meetings in 90 days Address patient's legal status Patient is on a 14 day involuntary treatment hold. Patient will be given the opportunity to talk to her vineyard worker and the bi developer Pratik Waddell MD Aug 19, 2016 15:04
--- NOTE | 2016-08-19 17:02 | NUR ---
Observations 0700 to 1900 Pt maintained behavioral control throughout the shift. Pt is open, cooperative, engaged. Pt seems to enjoy interacting with peers. Pt had daily goal to meet with doctor. Pt enjoyed stretching group and playing wii during the day, and also seemed to have a good vist with his mother. Pt is currently napping. Pt did not eat breakfast and ate 90% of lunch. Pt was observed every 15 minutes as ordered.
--- NOTE | 2016-08-19 18:02 | NUR ---
NURS Note [id number] Orientation: x4 Mood: "I'm doing good." Rates depression at 4 out of 10; denies anxiety. Affect: Appropriate, well-modulated. Thought Process/Content: Linear, logical. Denies SI, HI. Behavior: Pt in rm until 1200; up in group room and visiting with family in multipurpose room in afternoon, early evening. PRN/NURS Notes: Breakfast 0%, lunch 90%, dinner 100%. No PRNs
--- NOTE | 2016-08-19 18:16 | NUR ---
Qa Software Test Engineer./ c.m. S.:"My mood is good, positive." O.: met with pt. in his room. He was in bed resting in the middle of afternoon. He slept well last night - "I have no problem sleeping." He denied SI/HI, denied AH/VH or paranoid/delusional thoughts, rated depression at 4/10 and anxiety at 3/10. He had a good visit with his mother today. He is "trying to be patient" while he was waiting for a result of his assessment. He was in and out of his room attending unit activities. A.: pt. is cooperative, pleasant, social with peers, has a bright affect. P.: monitor behavior, follow care plan.
--- NOTE | 2016-08-20 05:17 | NUR ---
machinist 2nd shift 7pm to 7am Pt visible on unit, watching tv with peers, attended snack and wrap up meeting. Affect and mood brighter. Denies depressive symptoms at this time. Denies anxiety. Thoughts organized, logical and linear. Is awaiting Inpatient [place]. Pt is medication compliant, no medical issues or side effects reported or observed.
[2016-08-20 09:32] VITALS: BP 112/75; PULSE 58; RESP 16
--- NOTE | 2016-08-20 10:59 | PCM.PNPSY ---
Subjective Date of Service Aug 20, 2016 Subjective I spent 30 minutes both reviewing his treatment plan and providing supportive and educational psychotherapy. I spent more than 50% of the time counseling the patient. I reviewed the treatment plan with the patient and discussed options available including the potential risks, benefits and side effects. Rocky reports difficulty with sleep, apathy and amotivation. Has been reading the 12-step work and is hoping He can make significant changes in his life. He spoke about his girlfriend and how she is not alcoholic and he wants to be with her in a more genuine way. The Staff reports that he has been active and is participating well in one-to- one unit and group activities. He slept 8 hours. He denies medication side effects. Denies suicidal ideation plan or intent. He denied psychotic symptoms review. Patient was able to identify his medications and what they were used to treat. Mental Status Exam Vital Signs Vital Signs Date Time Temp Pulse Resp B/P Pulse Ox O2 Delivery O2 Flow Rate FiO2 08/20/16 09:32 36.6 58 16 112/75 Appearance: Neat/well groomed Attitude: Pleasant, Cooperative Behavior: No unusual behavior Affect: Well Modulated/Appropriate Mood: Dysthymic Thought Process/Associations: Logical/Sequential, Goal Directed Speech Production: Normal Speech Rate: Normal Speech Articulation: Normal Thought Content: Appropriate Danger to Self/Suicidal Ideati: None Danger to Others: None Consciousness: Alert Orientation: Person, Place, Date, Situation Memory: Grossly Intact Estimate Intellectual Function: Above Average Basis for IQ estimate: Awareness current events, Word use/vocabulary, Educational history Attention/Concentration & Cogn: Grossly Intact Insight: Good Judgement: Limited Mental Health Plan Rocky is a 20-year-old male from [place], admitted under ROSA status from [facility] following significant increasing difficulties with suicidal ideation, recent near attempt with a loaded pistol, and also significant increased behaviors including threatening physical harm to his girlfriend. He had been admitted to our unit within the past month with contributory presence of both alcohol use disorder, depression and anxiety. The patient reportedly was discharged with recommendations of outpatient interventions of individual therapy,medication management, and had an intake at [facility]. He does have a scheduled followup per his own report on Sunday of this next week with just an individual therapist. He also indicates that he was attempting to schedule appointments with family practitioner for medication management. He continues to be unemployed. 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 He indicates that he has been isolating to the apartment and playing video games as a primary intervention. He was previously very athletic and was training for a marathon, reporting that he had gotten up to 18 miles per day. In reviewing his current status, he openly identified feelings of hopelessness, helplessness, worthlessness. He admitted to contributory evidence of suicidal ideation under the influence of alcohol and near attempt within the past week.He denied any evidence of disturbance of his appetite. He admits to significant struggles with sleep, including primary and secondary insomnia. He admitted to feelings of apathy and amotivation. On the unit he has appeared to show gradual and steady improvement in mood, and is beginning to future plan to take back Authority in his life. He is hoping to transfer from here to an inpatient rehabilitation program. [place] AXIS I: 1. Major depressive disorder, recurrent type, nonpsychotic. 2. Social phobia. 3. Alcohol use disorder. AXIS II: Deferred. AXIS III: Rule out hypertension. AXIS IV: Stressors are noted for chronic alcohol use, limited impulse control. AXIS V: Global Assessment of Functioning of current 40. Medications Treatments Patient is being provided with a high degree of safety through the structure and active adult engagement. We will focus on developing improved coping skills and identifying stressors that may have led to current episode. We will attempt to: Integrate into therapeutic groups, milieu and individual therapy. Maintain in a closely monitored and structured unit Provide low-stimulation environment Assess degree of lability of affect and impulse control Complete safety plan Decrease frequency of relapse and need for re-hospitalization Denies thoughts of harm to self Establish a consistent sleep pattern Medication effective in stabilization of mood and/or thought process Reduce the risk of imminent harm to self and/or others by providing a safe environment Tolerates medication without side effects Patient will be on the following psychiatric medications: 1. Prozac 20 mg q.a.m. 2. Remeron 15 mg q.h.s. Education: Educate patient about recreational drug use as an etiology Recommend 90 AA meetings in 90 days Address patient's legal status Patient is on a 14 day involuntary treatment hold. Patient will be given the opportunity to talk to her afternoon nanny and the sign language teacher Pratik Waddell MD Aug 20, 2016 10:59
--- NOTE | 2016-08-20 13:27 | NUR ---
Workers Compensation Attorney./ c.m. S.:"I feel tired today and I don't know why." O.: met with pt. in his room. He was in bed resting - "relaxing". He complained about feeling tired. He spent most of the time in his room sleeping, resting. He promised to get up later, go to the Dining room and "maybe watch TV". He had a good visit with his parents yesterday. He described his mood as "good" today. He denied SI/HI, denied AH/VH, denied paranoid/delusional thoughts. He rated depression at 4/10 and anxiety at 3/10. He slept "good last night. A.: pt. is cooperative, isolative, quiet, has a good eye contact and a bright affect. P.: monitor behavior, encourage pt. to spend more time in a public area; follow care plan.
--- NOTE | 2016-08-20 17:44 | NUR ---
NURS Note [id number] S/O "I'm just relaxing today." Pt reports feeling more tired and sleepy than usual. Slept until 1200 and declined breakfast. Isolated in room much of day. Pt reports that he did some exercises in his room today, something he tries to do each day. Pt denied anxiety or depression. Denied HI, SI. Denied AH, VH. Pt is eager to begin inpatient substance use disorder treatment and is awaiting confirmation. Ate 0% of breakfast and 75% of lunch. A Pt is pleasant and appropriate. P Continue with care plan. Encourage social interaction.
--- NOTE | 2016-08-20 18:34 | NUR ---
Observations 0900 to 0 Pt affect and mood was isolative, passive and flat. Pt eye contact and speech was good. Pt was in his room and in bed most of the day. Pt was observed doing some reading in his room and out in D.R. Pt ate 100% of his meals. Pt ate snack. Pt maintained behavior throughout the shift for the most part. Pt attended group and unit activities. Pt attended community meeting and set daily goal. Pt stated that he would try and stay positive today. Pt was minimally social with staff and peers, pt mostly keeps to himself. Pt was pleasant, polite and cooperative. Pt is currently watching a movie with peers. Pt received a phone call and it appeared to go well. Pt was observed every 15 minutes throughout the shift as ordered. Addendum: 08/20/16 at 1907 by SABAS FONTENOT RUST Pt took a shower and washed a load of clothes. Pt is currently watching movie with peers.
--- NOTE | 2016-08-21 01:32 | NUR ---
Observations 1900 to 0700 Pt was out in the DR more than my previous shift worked. Pt was polite and cooperative. Pt hung out in the DR a little more. Pt first appeared asleep at 22:30 and was observed every 15 minutes through the night as directed.
--- NOTE | 2016-08-21 04:18 | NUR ---
Nursing Noc Pt pleasant, cooperative and social with peers. He spent the evening out in the milieu and participated in evening group and activities. He took his scheduled medication without difficulty. He watched a movie prior to bed. He has remained asleep since 2229 with no noted distress or awakening per protocol checks. Total sleep over 6 hours.
[2016-08-21 10:12] VITALS: BP 131/65; PULSE 65; RESP 16
--- NOTE | 2016-08-21 15:42 | NUR ---
Good day Pt. reported he is having a "good day" as he finally had adequate sleep and rest. He stated he sleep 13 hours. He also stated his depression level "low" and anxiety level "low". No PRN medications indicated for him. He came out of the room more often than yesterday. Affect was bright and friendly.
--- NOTE | 2016-08-21 19:19 | PCM.PNPSY ---
Subjective Date of Service Aug 21, 2016 Subjective The patient reports that he is "doing good" today and is awaiting inpatient substance treatment. The patient reports no side effects from medications and denies any acute medical issues. He denies any suicidal thoughts for the last 9 days. Sleep: 7.5 hours Appetite: "good" Suicidal and homicidal ideation: denies Auditory hallucinations/Visual hallucinations: denies Other Psychotic Symptoms: N/A Anxiety: 3/10, 8/10 on admission Depression: 07/28, 7 on admission Mental Status Exam Appearance: Neat/well groomed Attitude: Pleasant, Cooperative Behavior: No unusual behavior Affect: Well Modulated/Appropriate Mood: Dysthymic Thought Process/Associations: Logical/Sequential, Goal Directed Speech Production: Normal Speech Rate: Normal Speech Articulation: Normal Thought Content: Appropriate Danger to Self/Suicidal Ideati: None Danger to Others: None Hallucinations: Auditory (Denies), Visual (Denies) Consciousness: Alert Orientation: Person, Place, Date, Situation Memory: Grossly Intact Estimate Intellectual Function: Average Basis for IQ estimate: Awareness current events, Word use/vocabulary, Educational history Attention/Concentration & Cogn: Grossly Intact Insight: Good Judgement: Limited Mental Health Plan The patient is a 20-year-old male from [place]. The patient was admitted as a 72 hour ROSA from [facility] following significant increasing difficulties with suicidal ideation, recent near attempt with a loaded pistol, and worsening behavioral control including threatening physical harm to his girlfriend. The patient has a prior history of admission within the past month with alcohol use disorder, depression and anxiety. The patient is responding to current treatment, has been assessed for substance use treatment, and is awaiting placement. [place] AXIS I: 1. Major depressive disorder, recurrent type, nonpsychotic. 2. Social phobia. 3. Alcohol use disorder. AXIS II: Deferred. AXIS III: Rule out hypertension. AXIS IV: Stressors are noted for chronic alcohol use, limited impulse control. AXIS V: Global Assessment of Functioning of current 40. Medications Fluoxetine 20mg daily Mirtazapine 15mg nightly Treatments 1. The patient is admitted to the inpatient unit and will be provided a safe and secure environment. 2. The patient is denying current active suicidality and is not in need of a one-to-one at this time. 3. The patient is encouraged to participate with group and milieu activities. 4. The patient will be seen by the treatment team on a daily basis to assess symptoms, side effects and response to treatment. 5. The patient will be continued on his current medication. 6. Awaiting results of substance treatment referrals. 7. Anticipated length of stay is 5-7 days. Heladio Ramirez MD Aug 21, 2016 19:19 Establish a consistent sleep pattern Medication effective in stabilization of mood and/or thought process Reduce the risk of imminent harm to self and/or others by providing a safe environment Tolerates medication without side effects Patient will be on the following psychiatric medications: 1. Prozac 20 mg q.a.m. 2. Remeron 15 mg q.h.s. Education: Educate patient about recreational drug use as an etiology Recommend 90 AA meetings in 90 days Address patient's legal status Patient is on a 14 day involuntary treatment hold. Patient will be given the opportunity to talk to her infertility nurse and the keno clerk Heladio Ramirez MD Aug 21, 2016 19:19
--- NOTE | 2016-08-21 21:05 | NUR ---
Observations 0900 to 2130 Pt affect and mood was bright when engaged, isolative and flat. Pt eye contact and speech was good. Pt was out of his room more today. Pt was observed doing some reading in his room and out in D.R. Pt attended meals in D.R. ate 100% of his meals. Pt ate snack. Pt maintained behavior throughout the shift. Pt attended group and unit activities. Pt attended community meeting and set daily goal. Pt was minimally social with staff and peers, pt mostly keeps to himself. Pt was pleasant, polite and cooperative. Pt is currently watching a movie with peers. Pt received a phone call and it appeared to go well. Pt was observed every 15 minutes throughout the shift as ordered.
--- NOTE | 2016-08-22 02:24 | NUR ---
Observations 1900 to 0700 Pt was out in the DR more than my previous shift worked. Pt was polite and cooperative. Pt hung out in the DR later than usual. Pt first appeared asleep at 22:00 and was observed every 15 minutes through the night as directed.
--- NOTE | 2016-08-22 04:55 | NUR ---
Nursing Noc Pt pleasant, cooperative and social with peers. He spent the evening out in the milieu and participated in evening group and activities. He took his scheduled medication without difficulty. He watched TV prior to bed. He has remained asleep since 2200 with no noted distress or awakening per protocol checks. Total sleep 6.5+ hours.
[2016-08-22 09:00] VITALS: BP 135/84; PULSE 60; RESP 16
--- NOTE | 2016-08-22 15:33 | NUR ---
Hospice Community Liaison./ c.m. S.:"I'm good." O.: met with pt. and MD together in pt.'s room. He was in bed sleeping/resting in the middle of the day. He denied SI/HI, denied AH/VH, denied paranoid/delusional thoughts. He had "a little bit depression" and "some anxiety". Pt. got a phone call from Nelli Burgos CDP at [facility] who checked on him and told him that she was working on inpatient alcohol treatment placement for him. Senior System Operator called Nelli Burgos and left a message asking about an update regarding inpatient CD treatment options. A.: pt. is cooperative, pleasant, isolative, quiet. He has a bright affect and a positive attitude. P.: monitor behavior, coordinate with [facility] regarding inpatient CD treatment, engage pt. in the program activities; follow care plan.
--- NOTE | 2016-08-22 18:25 | NUR ---
NURS Note [id number] Mood: "I'm good." Endorses depression 08/28, anxiety 07/28. Affect: Well-modulated. Behavior: Pleasant, appropriate. Pt participated in groups. Thought Content/Process: "I'm ready to go to treatment. It's kind of boring here." Logical, linear, appropriate. Denies SI, HI. Denies AH, VH. PRN/NURS Notes: No PRNs. Pt is awaiting placement in chemical dependency programs.
--- NOTE | 2016-08-22 20:29 | PCM.PNPSY ---
Subjective Date of Service Aug 22, 2016 Subjective The patient reports that he is "good" today and is awaiting inpatient substance treatment. The patient reports no side effects from medications and denies any acute medical issues. Sleep: 8+ hours Appetite: "okay" Suicidal and homicidal ideation: denies Auditory hallucinations/Visual hallucinations: denies Other Psychotic Symptoms: N/A Anxiety: "not too bad" Depression: "a little bit" Mental Status Exam Appearance: Neat/well groomed Attitude: Pleasant, Cooperative Behavior: No unusual behavior Affect: Well Modulated/Appropriate Mood: Euthymic Thought Process/Associations: Logical/Sequential, Goal Directed Speech Production: Normal Speech Rate: Normal Speech Articulation: Normal Thought Content: Appropriate Danger to Self/Suicidal Ideati: None Danger to Others: None Hallucinations: Auditory (Denies), Visual (Denies) Consciousness: Alert Orientation: Person, Place, Date, Situation Memory: Grossly Intact Estimate Intellectual Function: Average Basis for IQ estimate: Awareness current events, Word use/vocabulary, Educational history Attention/Concentration & Cogn: Grossly Intact Insight: Good Judgement: Limited Mental Health Plan The patient is a 20-year-old male who was admitted as a 72 hour ROSA from [facility] following significantly increasing suicidal ideation, recent near attempt with a loaded pistol, and worsening behavioral control including threatening physical harm to his girlfriend. The patient has a prior history of admission within the past month with alcohol use disorder, depression and anxiety. The patient is responding to current treatment, has been assessed for substance use treatment, and is awaiting placement. [place] AXIS I: 1. Major depressive disorder, recurrent 2. Social phobia. 3. Alcohol use disorder. AXIS II: Deferred. AXIS III: Rule out hypertension. AXIS IV: Stressors include chronic alcohol use, limited impulse control. AXIS V: Global Assessment of Functioning of current 40. Medications Fluoxetine 20mg daily Mirtazapine 15mg nightly Treatments 1. The patient is admitted to the inpatient unit and will be provided a safe and secure environment. 2. The patient is denying current active suicidality and is not in need of a one-to-one at this time. 3. The patient is encouraged to participate with group and milieu activities. 4. The patient will be seen by the treatment team on a daily basis to assess symptoms, side effects and response to treatment. 5. The patient will be continued on his current medication. 6. Awaiting results of substance treatment referrals. 7. Anticipated length of stay is 5-7 days. Heladio Ramirez MD Aug 22, 2016 20:29
--- NOTE | 2016-08-22 20:53 | NUR ---
MHA Note D-Patient did not attend any structured groups or activities this shift. He ate meals in the dining room this shift. He attended basic ADLs and appears groomed. A- Patient isolated this shift in his room, specifically in bed. He was encouraged to get up and out of bed to which he agreed but did not act on. Patient has had a visitor and has been actively engaged with them. He brightened up quite a bit when his overall affect has been flat this shift. He did not engage with this golf starter and ranger regarding any suicidal thinking or thought disturbances. P-Continue current treatment plan.
--- NOTE | 2016-08-22 20:55 | NUR ---
MHA Note D-Patient ate all meals in the dining room. He did not overtly attend to any ADLs and appears unkempt. Patient attended groups and activities this shift. A-Patient appeared social and engaged this shift. He attended groups at which point he became pressured and tangential. He was not directable. Patient was talking about how he had been admitted and discharged from four places in one month, saying that they would give him medication and then take it away when he discharged and that each time he was homeless. Then they would come with a taxi and pick him up again. He stated that when he was homeless he had been walking across a bridge and some people knew who he was and started yelling at him to jump. Patient has since been more appropriate in his timing of conversations like this, and is more social and pleasant with peers. He denies any suicidal ideation/homicidal ideation or thought disturbances. P-Continue current treatment plan.
--- NOTE | 2016-08-23 05:24 | NUR ---
Nursing Noc Pt continues much the same as previous evenings. Mood even, behavior appropriate and engaged in evening activities. Social and polite with both peers and staff. He was smiling and engaged with his female visitor this evening. He took scheduled medication without difficulty. Adequate sleep through the night with no noted distress or awakening per protocol checks. He has remained asleep since 2200 with over 7 hours.
[2016-08-23 08:00] VITALS: BP 143/94; PULSE 92; RESP 16
--- NOTE | 2016-08-23 15:54 | NUR ---
Nursing Notes [id number] S: I feel fine today O: Pt cooperative, pleasant and participating in group. Pt states that his anxiety is a 2/10 and that he has no suicidal ideations. Pt acknowledges that he wants to go to treatment. restaurant worker is working on CD treatment for patient. He did sign the RI today for CD treatment. A: Pt affect is appropriate, pt makes eye contact, interacts with other patients and staff, was out of his room most of the day. Pt was reading books today and participating with activities. P: Monitor for safety and response to treatment. Follow plan of care.
--- NOTE | 2016-08-23 19:00 | NUR ---
Counseling/Nickel Plater: S: "I'm doing pretty good today." O: Patient slept 8+ hours last night per staff. He denies S/I and H/I. He denies auditory an visual hallucinations. Depression is 2/10 and anxiety is 2/10. This field underwriter spoke with Karla at [facility] in [place], [place] near [place], [place], and Karla is going to screen patient's H&P, progress notes, and medicine list to see if patient may be able to be admitted to [facility]. Patient signed a Release Of Information form for information to be faxed to [facility]. Awaiting update. A: Patient is cooperative, euthymic, limited judgment. P: Follow care plan, coordinate out-patient providers.
--- NOTE | 2016-08-23 21:28 | PCM.PNPSY ---
Subjective Date of Service Aug 23, 2016 Subjective The patient reports that his mood "is 8/10" (good) today and is awaiting inpatient substance treatment. The patient reports no side effects from medications and denies any acute medical issues. He reports no problems with social phobia as he is familiar with staff and patients. Sleep: 8+ hours Appetite: "good" Suicidal and homicidal ideation: denies Auditory hallucinations/Visual hallucinations: denies Other Psychotic Symptoms: N/A Anxiety: 2/10 Depression: 2/10 Mental Status Exam Appearance: Neat/well groomed Attitude: Pleasant, Cooperative Behavior: No unusual behavior Affect: Well Modulated/Appropriate Mood: Euthymic Thought Process/Associations: Logical/Sequential, Goal Directed Speech Production: Normal Speech Rate: Normal Speech Articulation: Normal Thought Content: Appropriate Danger to Self/Suicidal Ideati: None Danger to Others: None Hallucinations: Auditory (Denies), Visual (Denies) Consciousness: Alert Orientation: Person, Place, Date, Situation Memory: Grossly Intact Estimate Intellectual Function: Average Basis for IQ estimate: Awareness current events, Word use/vocabulary, Educational history Attention/Concentration & Cogn: Grossly Intact Insight: Good Judgement: Limited Mental Health Plan The patient is a 20-year-old male who was admitted as a 72 hour ROSA from [facility] following significantly increasing suicidal ideation, recent near attempt with a loaded pistol, and worsening behavioral control including threatening physical harm to his girlfriend. The patient has a prior history of admission within the past month with alcohol use disorder, depression and anxiety. The patient is responding to current treatment, has been assessed for substance use treatment, and is awaiting placement. [place] AXIS I: 1. Major depressive disorder, recurrent 2. Social phobia. 3. Alcohol use disorder. AXIS II: Deferred. AXIS III: Rule out hypertension. AXIS IV: Stressors include chronic alcohol use, limited impulse control. AXIS V: Global Assessment of Functioning of current 45. Medications Fluoxetine 20mg daily Mirtazapine 15mg nightly Treatments 1. The patient is admitted to the inpatient unit and will be provided a safe and secure environment. 2. The patient is denying current active suicidality and is not in need of a one-to-one at this time. 3. The patient is encouraged to participate with group and milieu activities. 4. The patient will be seen by the treatment team on a daily basis to assess symptoms, side effects and response to treatment. 5. The patient will be continued on his current medication. 6. Awaiting results of substance treatment referrals. 7. Anticipated length of stay is 5-7 days. Heladio Ramirez MD Aug 23, 2016 21:28
--- NOTE | 2016-08-24 04:06 | NUR ---
Nursing Noc Pt remains pleasant, polite and social. No issues or complaints this evening. Took scheduled HS medication. Adequate sleep through the night with no noted distress or awakening per protocol checks.
--- NOTE | 2016-08-24 05:23 | NUR ---
nursing, nights, 11-7 s/o- has appeared to sleep after 2144 during q 15 minute assessments. a- no apparent distress. p- monitor behavior/emotional state, quality, times and amount of sleep, use and effect of medication. jasson
[2016-08-24 09:01] VITALS: BP 123/73; PULSE 73
--- NOTE | 2016-08-24 14:17 | NUR ---
Obs Dayshift Pt is polite, participating, co-operative, calm. Pt is joining in groups, sitting out in the milieu reading during free times. Pt stated that he is hopeful for a bed early next week. Good ADL's, Good meals
--- NOTE | 2016-08-24 14:37 | PCM.PNPSY ---
Subjective Date of Service Aug 24, 2016 Subjective The patient reports that his mood is "good" today and is awaiting inpatient substance treatment. The patient reports no side effects from medications and denies any acute medical issues. Sleep: 8+ hours, "good, well." Appetite: "good" Suicidal and homicidal ideation: denies Auditory hallucinations/Visual hallucinations: denies Other Psychotic Symptoms: N/A Anxiety: 2/10 Depression: 210 Mental Status Exam Vital Signs Vital Signs Date Time Temp Pulse Resp B/P Pulse Ox O2 Delivery O2 Flow Rate FiO2 08/24/16 09:01 36.7 73 123/73 Appearance: Neat/well groomed Attitude: Pleasant, Cooperative Behavior: No unusual behavior Affect: Well Modulated/Appropriate Mood: Euthymic Thought Process/Associations: Logical/Sequential, Goal Directed Speech Production: Normal Speech Rate: Normal Speech Articulation: Normal Thought Content: Appropriate Danger to Self/Suicidal Ideati: None Danger to Others: None Hallucinations: Auditory (Denies), Visual (Denies) Consciousness: Alert Orientation: Person, Place, Date, Situation Memory: Grossly Intact Estimate Intellectual Function: Average Basis for IQ estimate: Awareness current events, Word use/vocabulary, Educational history Attention/Concentration & Cogn: Grossly Intact Insight: Good Judgement: Limited Mental Health Plan The patient is a 20-year-old male who was admitted as a 72 hour ROSA from [facility] following significantly increasing suicidal ideation, recent near attempt with a loaded pistol, and worsening behavioral control including threatening physical harm to his girlfriend. The patient has a prior history of admission within the past month with alcohol use disorder, depression and anxiety. The patient is responding to current treatment, has been assessed for substance use treatment, and is awaiting placement. [place] AXIS I: 1. Major depressive disorder, recurrent 2. Social phobia. 3. Alcohol use disorder. AXIS II: Deferred. AXIS III: Rule out hypertension. AXIS IV: Stressors include chronic alcohol use, limited impulse control. AXIS V: Global Assessment of Functioning of current 45. Medications Fluoxetine 20mg daily Mirtazapine 15mg nightly Treatments 1. The patient is admitted to the inpatient unit and will be provided a safe and secure environment. 2. The patient is denying current active suicidality and is not in need of a one-to-one at this time. 3. The patient is encouraged to participate with group and milieu activities. 4. The patient will be seen by the treatment team on a daily basis to assess symptoms, side effects and response to treatment. 5. The patient will be continued on his current medication. 6. Awaiting results of substance treatment referrals. 7. Anticipated length of stay is 5-7 days. Heladio Ramirez MD Aug 24, 2016 14:37
--- NOTE | 2016-08-24 16:32 | NUR ---
Nursing Notes [id number] S: Feel "good today" O: Pt cooperative, pleasant and participating in group. Pt states that his anxiety is a 2/10 and that he has no suicidal ideations. Pt acknowledges that he wants to go to treatment. A: Pt affect is appropriate, pt makes eye contact, interacts with other patients and staff, he was out of his room most of the day. Pt was reading books today and participating with activities, including watching TV and playing piano. P: Monitor for safety and response to treatment. Follow plan of care.
--- NOTE | 2016-08-24 19:04 | NUR ---
Counseling/Chute Boss: S: "I'm doing pretty good." O: Patient slept 8+ hours last night per staff. He denies S/I and H/I. He denies auditory an visual hallucinations. Depression is 2/10 and anxiety is 2/10. This mortgage loan underwriter spoke with Karla at [facility] in [place], [place] near [place], [place], and Karla screened patient's H&P, progress notes, and medicine list to see if patient may be able to be admitted to [facility]. Karla stated that their treatment center will accept patient but it will have to be Sunday or Sunday of next week when patient's out-patient counselor, Nelli at [facility], is in her office. A: Patient is cooperative, euthymic, limited judgment. P: Follow care plan, coordinate out-patient providers and [facility].
--- NOTE | 2016-08-25 05:44 | NUR ---
nursing, nights, 11-7 s/o- has appeared to sleep after 2129 during q 15 minute assessments. a- no apparent distress. p- monitor behavior/emotional state, quality, times and amount of sleep, use and effect of medication. jasson
--- NOTE | 2016-08-25 15:37 | NUR ---
Nursing Day Shift Patient cooperative and pleasant. Reports depression as "a little". Denies anxiety, SI, HI, and hallucinations. Patient has spent time in room reading and in dining room with peers.
--- NOTE | 2016-08-25 17:47 | NUR ---
[facility] Day Shift Pt affect and behavior unchanged from previous shifts. Pt maintained behavioral control throughout the shift. Pt affect appears mostly flat, brighter when engaged with staff or peers. Pt spends most of the shift resting in his room, but is occasionally active on the unit throughout the shift (reading, watching TV, interacting lightly with peers). Pt is pleasant with staff and peers when engaged, but is not social. Pt attended all meals and ate approx 100% of all meals.
[2016-08-25 17:53] VITALS: BP 122/79; PULSE 66; RESP 16
--- NOTE | 2016-08-25 18:56 | PCM.PNPSY ---
Subjective Date of Service Aug 25, 2016 Subjective The patient reports that his mood is "good" today and is awaiting inpatient substance treatment. The patient reports no side effects from medications and denies any acute medical issues. Sleep: 8.5 hours Appetite: "good" Suicidal and homicidal ideation: denies Auditory hallucinations/Visual hallucinations: denies Other Psychotic Symptoms: N/A Anxiety: 10 Depression: 06/30 Mental Status Exam Vital Signs Vital Signs Date Time Temp Pulse Resp B/P Pulse Ox O2 Delivery O2 Flow Rate FiO2 08/25/16 17:53 36.4 66 16 122/79 Appearance: Neat/well groomed Attitude: Pleasant, Cooperative Behavior: No unusual behavior Affect: Well Modulated/Appropriate Mood: Euthymic Thought Process/Associations: Logical/Sequential, Goal Directed Speech Production: Normal Speech Rate: Normal Speech Articulation: Normal Thought Content: Appropriate Danger to Self/Suicidal Ideati: None Danger to Others: None Hallucinations: Auditory (Denies), Visual (Denies) Consciousness: Alert Orientation: Person, Place, Date, Situation Memory: Grossly Intact Estimate Intellectual Function: Average Basis for IQ estimate: Awareness current events, Word use/vocabulary, Educational history Attention/Concentration & Cogn: Grossly Intact Insight: Good Judgement: Limited Mental Health Plan The patient is a 20-year-old male who was admitted as a 72 hour ROSA from [facility] following significantly increasing suicidal ideation, recent near attempt with a loaded pistol, and worsening behavioral control including threatening physical harm to his girlfriend. The patient has a prior history of admission within the past month with alcohol use disorder, depression and anxiety. The patient is responding to current treatment, has been assessed for substance use treatment, and is awaiting placement. [place] AXIS I: 1. Major depressive disorder, recurrent 2. Social phobia. 3. Alcohol use disorder. AXIS II: Deferred. AXIS III: Rule out hypertension. AXIS IV: Stressors include chronic alcohol use, limited impulse control. AXIS V: Global Assessment of Functioning of current 45. Medications Fluoxetine 20mg daily Mirtazapine 15mg nightly Treatments 1. The patient is admitted to the inpatient unit and will be provided a safe and secure environment. 2. The patient is denying current active suicidality and is not in need of a one-to-one at this time. 3. The patient is encouraged to participate with group and milieu activities. 4. The patient will be seen by the treatment team on a daily basis to assess symptoms, side effects and response to treatment. 5. The patient will be continued on his current medication. 6. Awaiting results of substance treatment referrals. 7. Anticipated length of stay is 5-7 days. Heladio Ramirez MD Aug 25, 2016 18:56
--- NOTE | 2016-08-25 19:22 | NUR ---
Counseling/Squirrel Man: S: "I'm looking forward to going to treatment." O: Patient slept 8.5 hours last night per staff. He denies S/I and H/I. He denies auditory an visual hallucinations. Depression is 2/10 and anxiety is 2/10. Patient is awaiting to discharge to [facility]. Out-patient manager of case, Nelli will be back in her office Sunday and will coordinate with [facility] to schedule transportation for patient Sunday or Sunday of next week. A: Patient is cooperative, euthymic, improved, brighter, fair judgment. P: Follow care plan, coordinate out-patient providers and [facility].
--- NOTE | 2016-08-26 05:58 | NUR ---
Nursing notes: public service director/sleep Patient appears to be sleeping on safety checks during the night, offers no complaints
[2016-08-26 08:47] VITALS: BP 133/93; PULSE 65; RESP 16
--- NOTE | 2016-08-26 11:56 | NUR ---
Nursing Day Shift- S- "I'm doing pretty good." O- Pt. appeared asleep at the start of the day shift. He awoke at 9 kodi and eat 100%. Pt. denied suicidal thoughts, HI, auditory or visual hallucinations. He rated depression and anxiety as 2/10. A- Awaiting inpatient CD treatment. Future oriented. P- Discharge Sunday or Sunday to [facility].
--- NOTE | 2016-08-26 13:06 | PCM.PNPSY ---
Subjective Date of Service Aug 26, 2016 Subjective The patient reports that his mood is "good" today, "I have not officially woken up yet." The patient is awaiting confirmation of inpatient substance treatment at the [facility]. The patient reports no side effects from medications and denies any acute medical issues. Sleep: 7.5 hours Appetite: "good" Suicidal and homicidal ideation: denies Auditory hallucinations/Visual hallucinations: denies Other Psychotic Symptoms: Denies paranoia Anxiety: 06/30 Depression: 06/30 Mental Status Exam Vital Signs Vital Signs Date Time Temp Pulse Resp B/P Pulse Ox O2 Delivery O2 Flow Rate FiO2 08/26/16 08:47 36.0 65 16 133/93 Appearance: Neat/well groomed Attitude: Pleasant, Cooperative Behavior: No unusual behavior Affect: Well Modulated/Appropriate Mood: Euthymic Thought Process/Associations: Logical/Sequential, Goal Directed Speech Production: Normal Speech Rate: Normal Speech Articulation: Normal Thought Content: Appropriate Danger to Self/Suicidal Ideati: None Danger to Others: None Hallucinations: Auditory (Denies), Visual (Denies) Consciousness: Alert Orientation: Person, Place, Date, Situation Memory: Grossly Intact Estimate Intellectual Function: Average Basis for IQ estimate: Awareness current events, Word use/vocabulary, Educational history Attention/Concentration & Cogn: Grossly Intact Insight: Good Judgement: Limited Mental Health Plan The patient is a 20-year-old male who was admitted as a 72 hour ROSA from [facility] following significantly increasing suicidal ideation, recent near attempt with a loaded pistol, and worsening behavioral control including threatening physical harm to his girlfriend. The patient has a prior history of admission within the past month with alcohol use disorder, depression and anxiety. The patient is responding to current treatment, has been assessed for substance use treatment, and is awaiting placement. [place] AXIS I: 1. Major depressive disorder, recurrent 2. Social phobia. 3. Alcohol use disorder. AXIS II: Deferred. AXIS III: Rule out hypertension. AXIS IV: Stressors include chronic alcohol use, limited impulse control. AXIS V: Global Assessment of Functioning of current 45. Medications Fluoxetine 20mg daily Mirtazapine 15mg nightly Treatments 1. The patient is admitted to the inpatient unit and will be provided a safe and secure environment. 2. The patient is denying current active suicidality and is not in need of a one-to-one at this time. 3. The patient is encouraged to participate with group and milieu activities. 4. The patient will be seen by the treatment team on a daily basis to assess symptoms, side effects and response to treatment. 5. The patient will be continued on his current medication. 6. Awaiting results of substance treatment referrals. 7. Anticipated length of stay is 5-7 days. Heladio Ramirez MD Aug 26, 2016 13:06
--- NOTE | 2016-08-26 14:15 | NUR ---
Lead Data Architect./ c.m. S.:"I'm good." O.: met with pt. and MD together in pt.'s room. He was in bed sleeping but he agreed to sit up and talk to MD and rfp writer. He said that he "didn't wake up yet" but he described his mood as "good". He slept "good" last night. He denied SI/HI, denied AH/VH or paranoid/delusional thoughts, rated depression at 2/10 and anxiety at 2/10. He is eating well. He is waiting for his admission date at inpatient alcohol treatment that maybe confirmed on Sunday or Sunday. He spent all morning in his room mostly sleeping or resting. A.: pt. is cooperative, pleasant, isolative, has a good eye contact and a bright affect. P.: monitor behavior, work on Safety plan; follow care plan.
--- NOTE | 2016-08-26 19:14 | NUR ---
Observations from [id number] Pt has been out on the unit most of the day and is interacting appropriately with staff and peers. Pt attended community meeting this morning and did laundry today. Pt had a brief visit this afternoon that seemed to go well and pt ate 100% of all meals and has been observed every 15 minutes as directed.
--- NOTE | 2016-08-26 20:07 | NUR ---
NURSING NOTE [id number] Mood: "pretty good" Affect: neutral Behavior: visible off and on in the DR, watching TV, his parents visited, mostly kept to himself Thought processes: logical, linear, no disturbed thought content. Denies SI/HI.
--- NOTE | 2016-08-27 05:46 | NUR ---
Sleep 11p-7a Adequate sleep through the night with no noted distress or awakening per protocol checks. Total sleep over 8.5 hours.
[2016-08-27 11:04] VITALS: BP 130/88; PULSE 60; RESP 16
--- NOTE | 2016-08-27 11:49 | NUR ---
Nursing Day Shift- S- I'm good. I'm excited to get to treatment." O- Pt. had slept well last PM per report. He eat well and attended groups. He continues to be positive about upcoming inpatient treatment, and denies thoughts of suicide. A- Pt. appears relaxed and at ease. Future oriented. P- Cont. bHTP.
--- NOTE | 2016-08-27 14:06 | NUR ---
Architectural Inspector./ c.m. S.:"I'm good, feel rested. I will have a relaxing day today." O.: met with pt. and MD together. Pt. slept well last night. He had a good visit with his parents yesterday. His father is planing to transport pt. to inpatient treatment when a bed is available. Pt. denied SI/HI, denied AH/VH or paranoid/delusional thoughts, rated depression and anxiety at 2/10. He is eating well. He was in and out of his room more often today. A.: pt. is cooperative, pleasant, quiet, has a bright affect and a positive attitude. P.: monitor behavior, contact MARK Yancey at [place], work on Safety plan; follow care plan.
--- NOTE | 2016-08-27 18:36 | PCM.PNPSY ---
Subjective Date of Service Aug 27, 2016 Subjective The patient reports that his mood is "good" today. He planned to "relax, exercise, and read." The patient's is reading [employer] collection of stories. The patient is awaiting confirmation of inpatient substance treatment at the [facility]. The patient reports no side effects from medications and denies any acute medical issues. Sleep: 8.5 hours Appetite: "good" Suicidal and homicidal ideation: denies Auditory hallucinations/Visual hallucinations: denies Other Psychotic Symptoms: N/A Anxiety: 06/30 Depression: 06/30 Mental Status Exam Vital Signs Vital Signs Date Time Temp Pulse Resp B/P Pulse Ox O2 Delivery O2 Flow Rate FiO2 08/27/16 11:04 36.5 60 16 130/88 Appearance: Neat/well groomed Attitude: Pleasant, Cooperative Behavior: No unusual behavior Affect: Well Modulated/Appropriate Mood: Euthymic Thought Process/Associations: Logical/Sequential, Goal Directed Speech Production: Normal Speech Rate: Normal Speech Articulation: Normal Thought Content: Appropriate Danger to Self/Suicidal Ideati: None Danger to Others: None Hallucinations: Auditory (Denies), Visual (Denies) Consciousness: Alert Orientation: Person, Place, Date, Situation Memory: Grossly Intact Estimate Intellectual Function: Average Basis for IQ estimate: Awareness current events, Word use/vocabulary, Educational history Attention/Concentration & Cogn: Grossly Intact Insight: Good Judgement: Limited Mental Health Plan The patient is a 20-year-old male who was admitted as a 72 hour ROSA from [facility] following significantly increasing suicidal ideation, recent near attempt with a loaded pistol, and worsening behavioral control including threatening physical harm to his girlfriend. The patient has a prior history of admission within the past month with alcohol use disorder, depression and anxiety. The patient is responding to current treatment, has been assessed for substance use treatment, and is awaiting placement. Kevil AXIS I: 1. Major depressive disorder, recurrent 2. Social phobia. 3. Alcohol use disorder. AXIS II: Deferred. AXIS III: Rule out hypertension. AXIS IV: Stressors include chronic alcohol use, limited impulse control. AXIS V: Global Assessment of Functioning of current 45. Medications Fluoxetine 20mg daily Mirtazapine 15mg nightly Treatments 1. The patient is admitted to the inpatient unit and will be provided a safe and secure environment. 2. The patient is denying current active suicidality and is not in need of a one-to-one at this time. 3. The patient is encouraged to participate with group and milieu activities. 4. The patient will be seen by the treatment team on a daily basis to assess symptoms, side effects and response to treatment. 5. The patient will be continued on his current medication. 6. Awaiting results of substance treatment referrals. 7. Anticipated length of stay is 1-2 days. Heladio Ramirez MD Aug 27, 2016 18:36
--- NOTE | 2016-08-27 19:18 | NUR ---
NURSING NOTE [id number] Mood: "okay, good" Affect: neutral, polite, cooperative Behavior: watching TV, mostly in the DR this shift, interacts selectively w/peers. Med compliant. Thought processes: logical, linear, denies SI/HI, futuristic.
--- NOTE | 2016-08-28 05:59 | NUR ---
Nursing Note - Operator/Assistant Foreman 11pm to 7am Pt slept through the night with no interruptions. No concerns reported or observed. Monitoring ongoing.
[2016-08-28 09:32] VITALS: BP 134/73; PULSE 81; RESP 16
--- NOTE | 2016-08-28 12:59 | NUR ---
Presentation Team Member./ c.m. S.:"I'm good. I'm glad to hear it." O.: met with pt. to finalize his discharge plan. He slept well last night. He denied SI/HI, denied AH/VH or paranoid/delusional thoughts. He described his mood as "very good". Real Estate Assessor told pt. about his bed date on August 30 at 17:00 at [facility] near [place] ([address]). Pt. said that he would call his father who wanted to take him over there. Pt. needs to bring 30 days supply of meds and a letter from MD about any over the counter meds that pt. might need to use during his treatment. Pt. asked to fax his prescriptions to the pharmacy across the street for [facility] on [address]. He was in and out of his room but he kept mostly to himself. A.: pt. is cooperative, pleasant, isolative, quiet, has a bright affect and a positive attitude. P.: monitor behavior, check Safety plan, work on follow up; follow care plan.
--- NOTE | 2016-08-28 13:32 | NUR ---
Obs Dayshift Pt is polite, engaging w/ both peers and staff. Pt has good participation on the unit during groups and free times. Pt was notified that he will be going to treatment Wed. and is happy about this next step, forward thinking and positive. Good ADL's, Good meals
--- NOTE | 2016-08-28 13:50 | PCM.PNPSY ---
Subjective Date of Service Aug 28, 2016 Subjective I spent 30 minutes both reviewing his treatment plan and providing supportive and educational psychotherapy. I spent more than 50% of the time counseling the patient. I reviewed the treatment plan with the patient and discussed options available including the potential risks, benefits and side effects. Rocky reports a remission of depression and anxiety symptoms. The Staff reports that he has been active and is participating well in one-to-one unit and group activities. He slept 8 hours. He denies medication side effects. Patient was able to identify his medications and what they were used to treat. He appeared to understand the need for medications by the questions he asked during our discussion. Mental Status Exam Vital Signs Vital Signs Date Time Temp Pulse Resp B/P Pulse Ox O2 Delivery O2 Flow Rate FiO2 08/28/16 09:32 36.6 81 16 134/73 Appearance: Neat/well groomed Attitude: Pleasant, Cooperative Behavior: No unusual behavior Affect: Well Modulated/Appropriate Mood: Euthymic Thought Process/Associations: Logical/Sequential, Goal Directed Speech Production: Normal Speech Rate: Normal Speech Articulation: Normal Thought Content: Appropriate Danger to Self/Suicidal Ideati: None Danger to Others: None Hallucinations: Auditory (Denies), Visual (Denies) Consciousness: Alert Orientation: Person, Place, Date, Situation Memory: Grossly Intact Estimate Intellectual Function: Average Basis for IQ estimate: Awareness current events, Word use/vocabulary, Educational history Attention/Concentration & Cogn: Grossly Intact Insight: Good Judgement: Limited Mental Health Plan Rocky is a 20-year-old male from [place], admitted under ROSA status from [facility] following significant increasing difficulties with suicidal ideation, recent near attempt with a loaded pistol, and also significant increased behaviors including threatening physical harm to his girlfriend. He had been admitted to our unit within the past month with contributory presence of both alcohol use disorder, depression and anxiety. 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 He indicates that he had been isolating to the apartment and playing video games as a primary intervention. He was previously very athletic and was training for a marathon, reporting that he had gotten up to 18 miles per day. At the time of admission he admitted to suicidal ideation under the influence of alcohol and near attempt one week prior to admission.He denied any evidence of disturbance of his appetite. He admits to significant struggles with sleep, including primary and secondary insomnia. He admitted to feelings of apathy and amotivation. On the unit he has appeared to show gradual and steady improvement in mood, and is beginning to future plan to take back Authority in his life. He is hoping to transfer from here to an inpatient rehabilitation program. Simpson AXIS I: 1. Major depressive disorder, recurrent 2. Social phobia. 3. Alcohol use disorder. AXIS II: Deferred. AXIS III: Rule out hypertension. AXIS IV: Stressors include chronic alcohol use, limited impulse control. AXIS V: Global Assessment of Functioning of current 45. Medications Fluoxetine 20mg daily Mirtazapine 15mg nightly Treatments 1. The patient is admitted to the inpatient unit and will be provided a safe and secure environment. 2. The patient is denying current active suicidality and is not in need of a one-to-one at this time. 3. The patient is encouraged to participate with group and milieu activities. 4. The patient will be seen by the treatment team on a daily basis to assess symptoms, side effects and response to treatment. 5. The patient will be continued on his current medication. 6. Awaiting results of substance treatment referrals. 7. Anticipated length of stay is 1-2 days. Pratik Waddell MD Aug 28, 2016 13:50
--- NOTE | 2016-08-28 18:57 | NUR ---
NURSING NOTE [id number] Mood: "good" Affect: relaxed, polite, smiling Behavior: social on and off w/peers, played ping pong w/peers, visible in the DR, showered, med compliant Thought processes: logical, linear, motivated for discharge, no safety issues expressed
--- NOTE | 2016-08-29 01:37 | NUR ---
Observations 1900 to 0700 Pt had a visitor again last night. Pt was out in the DR more than my previous shift worked. Pt was polite and cooperative. Pt hung out in the DR later than usual. Pt first appeared asleep at 22:00 and was observed every 15 minutes through the night as directed.
--- NOTE | 2016-08-29 05:59 | NUR ---
Nursing Note Senior Engineering Technician 11pm to 7am Pt asleep at start of shift and remained asleep with no interruptions the duration of the shift. Monitoring ongoing.
[2016-08-29 10:59] VITALS: BP 148/79; PULSE 81; RESP 18
--- NOTE | 2016-08-29 14:19 | PCM.PNPSY ---
Subjective Date of Service Aug 29, 2016 Subjective I spent 30 minutes both reviewing his treatment plan and providing supportive and educational psychotherapy. I spent more than 50% of the time counseling the patient. Rocky and I discussed treatment after discharge from our unit. We reviewed the 12-step program and his understanding of this. Rocky reports a remission of depression and anxiety symptoms. The Staff reports that he has been active and is participating well in one-to-one unit and group activities. He slept 8 hours. He denies medication side effects. Patient was able to identify his medications and what they were used to treat. Mental Status Exam Vital Signs Vital Signs Date Time Temp Pulse Resp B/P Pulse Ox O2 Delivery O2 Flow Rate FiO2 08/29/16 10:59 36.6 81 18 148/79 Appearance: Neat/well groomed Attitude: Pleasant, Cooperative Behavior: No unusual behavior Affect: Well Modulated/Appropriate Mood: Euthymic Thought Process/Associations: Logical/Sequential, Goal Directed Speech Production: Normal Speech Rate: Normal Speech Articulation: Normal Thought Content: Appropriate Danger to Self/Suicidal Ideati: None Danger to Others: None Hallucinations: Auditory (Denies), Visual (Denies) Consciousness: Alert Orientation: Person, Place, Date, Situation Memory: Grossly Intact Estimate Intellectual Function: Average Basis for IQ estimate: Awareness current events, Word use/vocabulary, Educational history Attention/Concentration & Cogn: Grossly Intact Insight: Good Judgement: Limited Mental Health Plan Rocky is a 20-year-old male from [place], admitted under ROSA status from [facility] following significant increasing difficulties with suicidal ideation, recent near attempt with a loaded pistol, and also significant increased behaviors including threatening physical harm to his girlfriend. He had been admitted to our unit within the past month with contributory presence of both alcohol use disorder, depression and anxiety. 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 He indicates that he had been isolating to the apartment and playing video games as a primary intervention. He was previously very athletic and was training for a marathon, reporting that he had gotten up to 18 miles per day. At the time of admission he admitted to suicidal ideation under the influence of alcohol and near attempt one week prior to admission.He denied any evidence of disturbance of his appetite. He admits to significant struggles with sleep, including primary and secondary insomnia. He admitted to feelings of apathy and amotivation. On the unit he has appeared to show gradual and steady improvement in mood, and is beginning to future plan to take back Authority in his life. He is hoping to transfer from here to an inpatient rehabilitation program. Elmer AXIS I: 1. Major depressive disorder, recurrent 2. Social phobia. 3. Alcohol use disorder. AXIS II: Deferred. AXIS III: Rule out hypertension. AXIS IV: Stressors include chronic alcohol use, limited impulse control. AXIS V: Global Assessment of Functioning of current 45. Medications Fluoxetine 20mg daily Mirtazapine 15mg nightly Treatments 1. The patient is admitted to the inpatient unit and will be provided a safe and secure environment. 2. The patient is denying current active suicidality and is not in need of a one-to-one at this time. 3. The patient is encouraged to participate with group and milieu activities. 4. The patient will be seen by the treatment team on a daily basis to assess symptoms, side effects and response to treatment. 5. The patient will be continued on his current medication. 6. Awaiting results of substance treatment referrals. 7. Anticipated length of stay is 1 days. Patient to transfer to inpatient drug and alcohol treatment in the [facility]. Pratik Waddell MD Aug 29, 2016 14:19
[2016-08-29] MEDS ORDERED: MIRT15TA6 PO (14:22)
[2016-08-29] MEDS ORDERED: HYDR50CA3 PO (14:22)
[2016-08-29] MEDS ORDERED: FLUO20CA25 PO (14:22)
--- NOTE | 2016-08-29 14:24 | PCM.DIMED ---
Discharge Instructions Date of Service Aug 29, 2016 Dates of Hospitalization Aug 11, 2016 at 15:26 Discharge Diagnosis Discharge Diagnosis AXIS I: 1. Major depressive disorder, recurrent 2. Social phobia. 3. Alcohol use disorder. AXIS II: Deferred. AXIS III: Rule out hypertension. AXIS IV: Stressors include chronic alcohol use, limited impulse control. AXIS V: Global Assessment of Functioning of current 45. Medication Instructions I Strongly encouraged patient to follow up with outpatient care: 1-Recommended patient takes medication as prescribed and not alter this unless under the direct care of a provider. 2-Recommend client refrain from recreational drugs and alcohol while taking psychiatric medications. 3-Recommend client start a 12 step program to deal with issues of addiction. 4-Recommend patient attempt to find a therapist or group to deal with impulse control and interpersonal relationship conflicts Diet No restrictions Activity No restrictions Call your provider Fever or Chills Patient Instructions Follow-up plan He to be transferred to inpatient drug and alcohol treatment in [place]. Patient 's father to drive. Follow-up with PCP in: 2 weeks Pratik Waddell MD Aug 29, 2016 14:24
--- NOTE | 2016-08-29 14:28 | NUR ---
Nursing Note [id number] Behavior S/O: Pt has good appetite. Out on unit to groups. Pt interacts well with other patients. Conversation tracking is clear & organized with normal rate & rhythm. Pt is pleasant, considerate, cooperative & polite. Pt took all medications as ordered. A: Pt has good insight into illness. P: Plans to D/C pt tomorrow morning to go to [facility] chemical dependency program in [place]. Provide supportive environment. Monitor medications & effects.
--- NOTE | 2016-08-29 15:34 | NUR ---
Guest Laundry Attendant./c.m. S.:"I'm feeling good." O.: met with pt. to finalize his discharge plan. He completed Safety plan. He denied SI/HI, denied AH/VH or paranoid/delusional thoughts. His father will come around 9:00 am tomorrow morning to take him to alcohol inpatient treatment near [place]. Pt. is "looking forward" to that. He slept well last night. He was more active in the unit. He was in and out of his room talking to selective peers. A.: pt. is cooperative, pleasant, more social with peers, has a bright affect and a positive attitude. P.: monitor behavior, discharge to alcohol inpatient treatment tomorrow at 9:00 am; follow care plan.
--- NOTE | 2016-08-29 16:25 | NUR ---
Obs Dayshift Pt is well engaged on the unit with peers, staff and in groups. Pt spent most of the day in the milieu, group room or watching TV. Pt is very tolerant of peers. Polite, appropriate, calm, good eye contact, smiling, hopeful. Looking forward to DC tomorrow to treatment. Good ADL's, Good meals
--- NOTE | 2016-08-29 21:46 | NUR ---
nursing note evening shift O)out watching tv, social with select peers, anticipating DC tomorrow, cooperative and pleasant on approach, denies anxiety, ate meals A)ready for DC in am, no complaints, cooperative P) DC in am
--- NOTE | 2016-08-30 06:24 | NUR ---
Sleep Adequate sleep through the night with no noted distress or awakening per protocol checks. Total sleep 8+ hours.
--- NOTE | 2016-08-30 13:20 | NUR ---
Counseling/Ironer Machine: S: "I'm hopeful about treatment." O: Patient slept 8+ hours last night per staff. He denies S/I and H/I. He denies auditory an visual hallucinations. Depression is 0/10 and anxiety is 1/10. Patient discharged today and was transported to [facility] by his father. A: Patient is cooperative, hopeful, improved, brighter, fair judgment. P: Follow care plan, coordinate out-patient providers and [facility].
--- NOTE | 2016-08-30 17:14 | NUR ---
Nursing Discharge- Pt. discharged to the care of his father at 0905 today. He expressed feeling upbeat and hopeful about beginning Alcohol treatment in [place]. His father planned on driving him to the [facility] after they picked up prescriptions at [facility] pharmacy. He expressed an understanding of the follow up medication and treatment plans as well as his rights regarding fire arms. Pt. denied thoughts of self harm and rated anxiety and depression as 2/10.
--- NOTE | 2016-08-31 00:54 | DIS ---
[address] [address] DISCHARGE SUMMARY PATIENT: FRANK INFANTE : 1995 MR#: [id number] ADMIT: 08/11/2016 JOB ID: [id number] DIS: 08/30/2016 IDENTIFICATION: The patient is a 20-year-old male from [place]. He was admitted under involuntary treatment due to increasing difficulty with suicidal ideation. SUMMARY OF PRESENT ILLNESS: The patient is a 20-year-old male from [place] who was admitted for suicidal ideation after a near attempt of suicide with a loaded pistol and significant increase in behaviors, including threatening physical harm to his girlfriend. He had been admitted to our unit within the past month with the presence of both alcohol use disorder, depression and anxiety. 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 At the time of his admission, his suicidal ideation appeared to be secondary to alcohol. HOSPITAL COURSE: Client was admitted to the unit and was provided with a high degree of safety through the structure and active adult engagement he received here. We had him participate in one-to-one unit and group activities focused on improving coping skills, educating about effects of alcohol, and helping him come up with a safety and treatment plan should suicidal ideation recur as an outpatient. He worked diligently on all the above therapies. Today, he gave me a reasonable safety plan and therapy plan. He plans to leave today for [place] for inpatient drug and alcohol. His father will take him. He denied suicidal ideation, plan, or intent. MENTAL STATUS EXAM: Client neatly dressed, calm, pleasant, good eye contact. Mood euthymic. Affect congruent. Normal intensity. Thought process: Client is able to relate a coherent history. Thought content: Themes of future planning, how to take care of himself, and he talked about the 12 step program and hoping to be able to maintain sobriety. He denied suicidal ideation, plan, or intent. He detailed a reasonable safety plan to me. DISCHARGE DIAGNOSES: AXIS I: 1. Major depressive disorder, recurrent. 2. Social phobia. 3. Alcohol use disorder. AXIS II: Deferred. AXIS III: None. AXIS IV: Moderate. AXIS V: Current Global Assessment of Functioning equal to 45. DISCHARGE PLAN: Client to follow up with drug and alcohol rehab program in [place]. Father to drive him today. DISCHARGE MEDICATIONS: 1. Prozac 20 daily. 2. Remeron 15 h.s.. 3. Clear liquid diet. 4. Recommend client refrain from recreational drugs and alcohol while taking psychiatric medications. Recommend he not change these medications unless under the supervision of a physician. CONDITION ON DISCHARGE: Good. PROGNOSIS: Fair.
== END 2016-08-30 09:05 | disposition other institution (70) | DRG 885 ==
LOC: MHC 15:26
PROVIDERS: ADMIT Psychiatry & Neurology Psychiatry; ATTEND Psychiatry & Neurology Psychiatry
DX: F33.8 Other recurrent depressive disorders (principal); F41.1 Generalized anxiety disorder; F40.01 Agoraphobia with panic disorder; F40.10 Social phobia, unspecified; Z72.89 Other problems related to lifestyle